=== PATIENT | male | born 1985 | race Caucasian/White ===

== ENCOUNTER 2016-12-08 12:27 | Emergency (ER) ==
[2016-12-08 12:33] VITALS: BP 122/73; TEMP 99.9; BMI 24.3
--- NOTE | 2016-12-08 12:42 | ED.PDOC ---
General ED Provider: Dr. ANURAG WILEY-ER Chief Complaint: Sore Throat Stated Complaint: jesusita got a sore throat and i have blurry vision and have trouble swallowing Time Seen by Physician: 12:30 Mode of Arrival: Walk-In Information Source: Patient Exam Limitations: No limitations Nursing and Triage Documentation Reviewed and Agree: Yes EENT Complaint Exam - Throat Complaint/Exam Onset/Duration: 24hrs Symptoms Are: Still present Timimg: Constant Initial Severity: Mild Current Severity: Moderate Aggravating: Reports: Eating Alleviating: Reports: None Associated Signs and Symptoms: Reports: Dysphagia, Difficulty breathing. Denies : Fever, Drooling, Foreign body sensation, Chills, Cough, Wheezing, Hoarseness, Sinus discomfort, Nasal congestion, Lethargy, Irritability, Decreased activity, Vomiting, Diarrhea, Decreased hearing, Ear drainage Uvula Midline: Yes Sandra-tonsillar Fluctuence: No Scarlatinaform Rash Present: No Exanthem: Present: Pharynx Stridor Present: No Sinus Tenderness Present: No Tonsillar Hypertrophy Present: No Tonsillar Exudate Present: No Sandra-tonsillar Swelling Present: No Adenopathy Present: No Splenomegaly Present: No Differential Diagnoses: Pharyngitis, Tonsillitis Review of Systems - Review Of Systems Constitutional: Reports: Weakness, Loss of appetite Eyes: Reports: No symptoms Ears, Nose, Mouth, Throat: Reports: Throat pain, Throat swelling Respiratory: Reports: Cough Cardiac: Reports: No symptoms GI: Reports: No symptoms : Reports: No symptoms Musculoskeletal: Reports: No symptoms Skin: Reports: No symptoms Neurological: Reports: No symptoms Endocrine: Reports: No symptoms Hematologic/Lymphatic: Reports: No symptoms All Other Systems: Reviewed and Negative Past Medical History - Past Medical History Previously Healthy: Yes Endocrine: Reports: None Cardiovascular: Reports: None Respiratory: Reports: None Hematological: Reports: None Gastrointestinal: Reports: None Genitourinary: Reports: None Neuro/Psych: Reports: None Musculoskeletal: Reports: Joint Pain (Carple tunnel ) Cancer: Reports: None - Surgical History General Surgical History: Reports: Unknown - Family History Family History: Reports: Unknown - Social History Smoking Status: Current some day smoker Hx Substance Use: No Alcohol Screening: None Physical Exam - Physical Exam Appearance: Well-appearing, No pain distress, Well-nourished Eyes: SCAR, EOMI, Conjunctiva clear ENT: Ears normal Neck: Supple Respiratory: Airway patent, Breath sounds clear, Breath sounds equal, Respirations nonlabored Cardiovascular: RRR, Pulses normal, No rub, No murmur GI/: Soft, Nontender, No masses, Bowel sounds normal, No Organomegaly Musculoskeletal: Normal strength, ROM intact, No edema, No calf tenderness Skin: Warm, Dry, Normal color Neurological: Sensation intact, Motor intact, Reflexes intact, Cranial nerves intact, Alert, Oriented Psychiatric: Affect appropriate, Mood appropriate Critical Care Note - Critical Care Note Total Time (mins): 0 Course - Course Orders, Labs, Meds: mr byrd asked me how long it would take for studies to come back and i told him as long as 2 hrs--he stated he didnt have time to wait due to work and decided not to be seen--i offered him work excuse but again he states he cant stay due to his work and decided to leave ama Vital Signs: Temp Pulse Resp BP Pulse Ox 12/08/16 12:28 99.9 F H 100 H 16 122/73 100 Departure - Departure Time of Disposition: 12:44 Disposition: AMA Discharge Problem: Sore throat symptom Instructions: Pharyngitis (ED) Condition: Good Pt referred to PMD for follow-up: No Additional Instructions: return if you decide you would like to be seen Allergies/Adverse Reactions: Allergies No Known Allergies Allergy (Verified 06/14/16 20:15) Home Medications: Ambulatory Orders 1 [No Reported Medications] 06/14/16 Disposition Discussed With: Patient
== END 2016-12-08 12:59 | disposition left against medical advice (07) ==
LOC: ED 12:27
DX: J02.9 Acute pharyngitis, unspecified (principal); F17.210 Nicotine dependence, cigarettes, uncomplicated
CPT/HCPCS: 99281

== ENCOUNTER 2016-12-08 13:38 | Inpatient (IN) ==
[2016-12-08 14:12] LABS: BASOPHILS % (AUTO) 0.4 % (0.0-3.0); EOSINOPHILS # (AUTO) 0.1 K/ul (0.0-0.7); EOSINOPHILS % (AUTO) 0.8 % (0.0-7.0); HEMATOCRIT 39.7 % (42.0-52.0); HEMOGLOBIN 15.4 g/dl (14.0-18.0); IMMATURE GRANULOCYTE % (AUTO) 0.3 % (0.0-5.0); LYMPHOCYTES % (AUTO) 10.1 (10.0-50.0); MEAN CORPUSCULAR HEMOGLOBIN 31.1 pg (27.0-31.0); MEAN CORPUSCULAR HGB CONC 38.8 (31.8-35.4); MEAN CORPUSCULAR VOLUME 80.2 fl (80.0-94.0); MONOCYTES # (AUTO) 0.5 K/uL (0.4-2.0); MONOCYTES % (AUTO) 5.1 (0-10); NEUTROPHILS # (AUTO) 8.6 K/ul (2.0-6.9); NEUTROPHILS % (AUTO) 83.3; PLATELET COUNT 248 10^3/uL (140-440); RED BLOOD COUNT 4.95 10^6/ul (4.70-6.10); WHITE BLOOD COUNT 10.32 K/ul (4.2-10.2)
--- NOTE | 2016-12-08 14:31 | CT ---
EXAM: CT of the head without contrast History: Blurred vision and dizziness. Technique: Multiplanar CT images through the head were obtained without the administration of IV co ntrast Findings: 1.7 cm mucous retention cyst or polyp within the left maxillary sinus. The rest of the v isualized paranasal sinuses and mastoid air cells are clear in general. No acute calvarial abnormali ties. Intracranially the ventricular and cisternal spaces are normal in size, shape and configuration for a patient of this age. No dominant mass or midline shift. No hydrocephalous. No acute intracrania l hemorrhage or abnormal extraaxial fluid collections. Impression: 1. No acute intracranial process. 2. Left maxillary sinus mucous retention cyst or polyp. 3. If symptoms persist recommend further evaluation with brain MRI.
[2016-12-08 14:48] LABS: ADD URINE MICROSCOPIC NO; BILIRUBIN,URINE Negative (NEGATIVE); KETONES,URINE 2+ (NEGATIVE); LEUKOCYTE ESTERASE ,URINE Negative (NEGATIVE); NITRITE,URINE Negative (NEGATIVE); PH,URINE 5.5 (5-9); PROTEIN,URINE Negative (NEGATIVE); URINE, BLOOD Negative (NEGATIVE)
[2016-12-08 14:54] LABS: ALANINE AMINOTRANSFERASE 53 U/L (12-78); ALBUMIN 4.1 g/dL (3.4-5.0); ALBUMIN/GLOBULIN RATIO 1.21; ALKALINE PHOSPHATASE 146 U/L (50-136); ANION GAP 18.5; ASPARTATE AMINO TRANSFERASE 50 U/L (15-37); BILIRUBIN,TOTAL 0.81 mg/dL (0.00-1.20); BLOOD UREA NITROGEN 13 mg/dL (7-18); BUN/CREATININE RATIO 9.02; CALCIUM 9.2 mg/dL (8.2-10.2); CARBON DIOXIDE 23 mmol/L (21-32); CHLORIDE 92 mmol/L (98-107); CREATININE 1.44 mg/dL (0.60-1.10); POTASSIUM 4.5 mmol/L (3.5-5.1); SODIUM 129 mmol/L (136-145); TOTAL PROTEIN 7.5 g/dL (6.4-8.2)
[2016-12-08 14:57] LABS: COCAIN SCREEN,URINE NEGATIVE (NEGATIVE)
[2016-12-08 14:59] LABS: CREATINE KINASE 946 U/L; GLUCOSE 776 mg/dL (70-100)
[2016-12-08] MEDS ORDERED: SODIUM CHLORIDE 1,000 ML IV STA (15:06)
[2016-12-08 15:18] LABS: ABG BASE EXCESS -2 (-2.0-2.0); ABG HCO3 22.3 (22.0-26.0); ABG PCO2 34.5 mmHg (35-45); ABG PH 7.418 (7.35-7.45); ABG TCO2 23 (22.0-28.0)
[2016-12-08 15:22] LABS: CREATINE KINASE MB 9.5 ng/ml (0.0-3.6)
--- NOTE | 2016-12-08 15:36 | ED.PDOC ---
General ED Provider: Dr. ANURAG WILEY-ER Chief Complaint: Sore Throat Stated Complaint: i have mild sore throat, dizzines, weight loss, visual changes Time Seen by Physician: 13:45 Mode of Arrival: Walk-In Information Source: Patient Exam Limitations: No limitations Nursing and Triage Documentation Reviewed and Agree: Yes Endocrine Complaint Exam - Diabetic Complication Complaint/Exam Onset/Duration: several days Symptoms Are: Still present Timing: Constant Initial Severity: Mild Current Severity: Mild Character: Alert, Lethargic Aggravating: Reports: Recent illness Alleviating: Reports: None Associated Signs and Symptoms: Reports: Polydipsia. Denies: Decreased LOC, Polyuria, Polyphagia, Weight loss, Abdominal pain, Nausea, Vomiting, Fever, Diaphoresis, Fruity breath Related History: Reports: Similar episode Cardiac Risk Factors: Reports: DM CVA Risk Factors: Reports: DM Serious Bacterial Infection Risk Factors: Reports: None Related Surgical History: Reports: None Acetone on Breath: No Dry Mucous Membranes: Yes Kussmaul Respirations: No Glascow Coma Scale (see protocol): 15 Meningeal Signs: No Focal Weakness: None Focal Sensory Loss: None Gait: Normal Nystagmus Present: No Gag Reflex Present: Yes Finger to Nose: Normal Romberg Test Positive: No Babinski Sign: Negative Right Heel to Toe Normal: Yes Differential Diagnoses: Hyperglycemia, New Onset Diabetes Review of Systems - Review Of Systems Constitutional: Reports: No symptoms Eyes: Reports: No symptoms Ears, Nose, Mouth, Throat: Reports: No symptoms Respiratory: Reports: No symptoms Cardiac: Reports: No symptoms GI: Reports: No symptoms : Reports: Frequency Musculoskeletal: Reports: No symptoms Skin: Reports: No symptoms Neurological: Reports: No symptoms Endocrine: Reports: No symptoms Hematologic/Lymphatic: Reports: No symptoms All Other Systems: Reviewed and Negative Past Medical History - Past Medical History Previously Healthy: Yes Endocrine: Reports: None Cardiovascular: Reports: None Respiratory: Reports: None Hematological: Reports: None Gastrointestinal: Reports: None Genitourinary: Reports: None Neuro/Psych: Reports: None Musculoskeletal: Reports: Joint Pain (Carple tunnel ) Cancer: Reports: None - Surgical History General Surgical History: Reports: Unknown - Family History Family History: Reports: Unknown - Social History Smoking Status: Current some day smoker Hx Substance Use: No Alcohol Screening: None Lives: With family - Immunizations Tetanus Shot up to Date: No Physical Exam - Physical Exam Appearance: Ill-appearing Ill-appearing: Mild Eyes: SCAR, EOMI, Conjunctiva clear ENT: Ears normal, Nose normal, Oropharynx normal Neck: Supple Respiratory: Airway patent, Breath sounds clear, Breath sounds equal, Respirations nonlabored Cardiovascular: RRR, Pulses normal, No rub, No murmur GI/: Soft, Nontender, No masses, Bowel sounds normal, No Organomegaly Musculoskeletal: Normal strength, ROM intact, No edema, No calf tenderness Skin: Warm, Dry, Normal color Neurological: Sensation intact, Motor intact, Reflexes intact, Cranial nerves intact, Alert, Oriented Psychiatric: Affect appropriate, Mood appropriate Interpretation - Radiology Interpretation Radiology Interpretation By: Radiologist Radiology Results: Negative Exam Interpreted: CT Scan Physician Notification - Case Discussed Physician Notified: dr steele Time of Notification: 15:36 Critical Care Note - Critical Care Note Total Time (mins): 15 Course - Course Hematology/Chemistry: 12/08/16 13:55 12/08/16 13:55 Orders, Labs, Meds: Lab Review 12/08/16 12/08/16 12/08/16 13:55 14:30 15:04 WBC 10.32 H RBC 4.95 Hgb 15.4 Hct 39.7 L MCV 80.2 MCH 31.1 H MCHC 38.8 H RDW Coeff of Nory 11.4 L Plt Count 248 Immature Gran % (Auto) 0.3 Neut % (Auto) 83.3 Lymph % (Auto) 10.1 Rankin % (Auto) 5.1 Eos % (Auto) 0.8 Baso % (Auto) 0.4 Immature Gran # (Auto) 0.0 Neut # 8.6 H Lymph # 1.0 Rankin # 0.5 Eos # 0.1 Baso # 0.0 Puncture Site R rad O2 Saturation 98.0 ABG pH 7.418 ABG pCO2 34.5 L ABG pO2 104.0 H ABG HCO3 22.3 ABG Total CO2 23 ABG Base Excess -2 Joel Test + FiO2 % 21.0 Sodium 129 L Potassium 4.5 Chloride 92 L Carbon Dioxide 23 Anion Gap 18.5 BUN 13 Creatinine 1.44 H Estimated GFR (MDRD) 57.00 BUN/Creatinine Ratio 9.02 Glucose 776 H* Hemoglobin A1c 14.6 H Calcium 9.2 Total Bilirubin 0.81 AST 50 H ALT 53 Alkaline Phosphatase 146 H Total Creatine Kinase 946 CK-MB (CK-2) 9.5 H* CK-MB (CK-2) % 1.51891 Troponin I < 0.0100 Total Protein 7.5 Albumin 4.1 Globulin 3.4 Albumin/Globulin Ratio 1.21 Urine Color Yellow Urine Clarity Clear Urine pH 5.5 Ur Specific [place] <=1.005 Urine Protein Negative Urine Glucose (UA) 2+ Urine Ketones 2+ Urine Blood Negative Urine Nitrite Negative Urine Bilirubin Negative Urine Urobilinogen 0.2 Ur Leukocyte Esterase Negative Urine Opiates Screen Negative Ur Oxycodone Screen Negative Urine Methadone Screen Negative Ur Propoxyphene Screen Negative Ur Barbiturates Screen Negative U Tricyclic Antidepress Negative Ur Phencyclidine Scrn Negative Ur Amphetamine Screen Negative U Methamphetamines Scrn Negative U Benzodiazepines Scrn Negative Urine Cocaine Screen Negative U Cannabinoids Screen Negative Orders Category Date Time Status ABG DRAW REQUEST Stat CARDIO 12/08/16 15:04 Completed EKG-(ED ONLY) Stat CARDIO 12/08/16 13:49 Completed ED IV/MEDIPORT/POWERPORT .ONCE EMERGENCY 12/08/16 15:06 Active ABG Stat LAB 12/08/16 15:04 Completed CBC W/ AUTO DIFF Stat LAB 12/08/16 13:55 Completed COMPREHENSIVE METABOLIC PANEL Stat LAB 12/08/16 13:55 Completed CREATINE KINASE Stat LAB 12/08/16 13:55 Completed DRUG SCREEN (RAPID FOR ED) [DRUG SCREEN, URINE, RAPID] LAB 12/08/16 14:30 Completed Stat HEMOGLOBIN A1C Stat LAB 12/08/16 13:55 Completed MOLECULAR GROUP A STREP Stat LAB 12/08/16 13:55 Results STREP SCREEN Stat LAB 12/08/16 13:55 Results TROPONIN I Stat LAB 12/08/16 13:55 Completed URINALYSIS C & S IF INDICATED Stat LAB 12/08/16 14:30 Completed 0.9 % Sodium Chloride [Saline Flush] MEDS 12/08/16 15:06 Active 1 syr IVF PRN PRN Sodium Chloride 0.9% [Sodium Chloride] 1,000 ml MEDS 12/08/16 15:[address] HEAD W/O CONTRAST Stat RADS 12/08/16 13:49 Completed Medications Generic Name Dose Route Start Last Admin Trade Name Freq PRN Reason Stop Dose Admin Sodium Chloride 1,000 mls @ 1,000 mls/hr 12/08/16 15:06 12/08/16 15:16 Sodium Chloride IV 12/08/16 16:05 1,000 mls/hr BOLUS STA Administration Sodium Chloride 1 syr 12/08/16 15:06 Saline Flush IVF PRN PRN To flush IV Vital Signs: Temp Pulse Resp BP Pulse Ox 12/08/16 13:40 98 F 61 16 121/71 97 Departure - Departure Time of Disposition: 15:37 Disposition: ADMITTED INPATIENT Discharge Problem: Type 2 diabetes mellitus with hyperglycemia Qualifiers: Diabetes mellitus mcfp insulin use: 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
[2016-12-08] MEDS ORDERED: HUMULIN R 100 UNIT in SODIUM CHLORIDE 100 ML IV SCH (15:45)
[2016-12-08] MEDS ORDERED: SODIUM CHLORIDE 1,000 ML IV SCH (16:00)
[2016-12-08 16:37] VITALS: BMI 24.6
[2016-12-08] MEDS ORDERED: HUMULIN R SUBCUT PRN (18:41)
[2016-12-08] MEDS ORDERED: D5%-NS-KCL 20 MEQ/L IV SOL 1,000 ML IV SCH (19:00)
[2016-12-08] MEDS: POTASSIUM CHLORIDE 10 MEQ VIAL-ADDITIVE ONLY 20 MEQ in SODIUM CHLORIDE 1,000 ML IV SCH ×2 (19:40→21:33)
[2016-12-08] MEDS ORDERED: HUMULIN R ONE ×4 (20:27→23:12)
[2016-12-08] MEDS: HUMULIN R SUBCUT PRN ×4 (20:30→23:15)
[2016-12-08] MEDS ORDERED: SODIUM CHLORIDE 0.9%-KCL 20 MEQ 1,000 ML IV SCH (21:00)
[2016-12-09] MEDS ORDERED: D5%-NS-KCL 20 MEQ/L IV SOL 1,000 ML IV SCH (01:30)
[2016-12-09 04:37] LABS: BASOPHILS % (AUTO) 0.2 % (0.0-3.0); EOSINOPHILS # (AUTO) 0.2 K/ul (0.0-0.7); EOSINOPHILS % (AUTO) 1.8 % (0.0-7.0); HEMATOCRIT 34.1 % (42.0-52.0); HEMOGLOBIN 12.7 g/dl (14.0-18.0); IMMATURE GRANULOCYTE % (AUTO) 0.4 % (0.0-5.0); LYMPHOCYTES # (AUTO) 2.1 K/uL (0.60-3.4); LYMPHOCYTES % (AUTO) 24.7 (10.0-50.0); MEAN CORPUSCULAR HEMOGLOBIN 30.5 pg (27.0-31.0); MEAN CORPUSCULAR HGB CONC 37.2 (31.8-35.4); MEAN CORPUSCULAR VOLUME 81.8 fl (80.0-94.0); MONOCYTES # (AUTO) 0.6 K/uL (0.4-2.0); MONOCYTES % (AUTO) 6.6 (0-10); NEUTROPHILS # (AUTO) 5.6 K/ul (2.0-6.9); NEUTROPHILS % (AUTO) 66.3; PLATELET COUNT 193 10^3/uL (140-440); RED BLOOD COUNT 4.17 10^6/ul (4.70-6.10); WHITE BLOOD COUNT 8.43 K/ul (4.2-10.2)
[2016-12-09 04:57] LABS: ALBUMIN 3.1 g/dL (3.4-5.0); ALBUMIN/GLOBULIN RATIO 1.29; ANION GAP 8.5; BILIRUBIN,TOTAL 0.45 mg/dL (0.00-1.20); BUN/CREATININE RATIO 11.53; CALCIUM 8.2 mg/dL (8.2-10.2); CREATININE 0.78 mg/dL (0.60-1.10); POTASSIUM 3.5 mmol/L (3.5-5.1); TOTAL PROTEIN 5.5 g/dL (6.4-8.2)
[2016-12-09] MEDS: HUMULIN R SUBCUT PRN ×3 (09:00→21:38)
--- NOTE | 2016-12-09 09:27 | HP ---
12/08/16 CHIEF COMPLAINT: Blurred vision, dizziness, urgency of urination and sore throat. SOURCE OF HISTORY: Patient, plus records from the emergency room. Reliability good. HISTORY OF PRESENT ILLNESS: The problem begun Tuesday while at work. He had blurred vision with dizziness. He also urgency of urination and urinates soon after drinking water or any liquids. 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 He had this urgency of urination, as well polydipsia for about a month or there about. He has the sensation to urinate that he pinches his penis in order to prevent from urinating on his pants. He had worked at [employer] now for more than a year. He works from 2 p.m. to 11 p.m. He also experienced sore throat on Tuesday and continued. The blurred vision had continued that he could not see words that were three time the size the usual type with an alphabet. The patient presented to the emergency room initially was examined about 12:30, but signed out since the blood test would last for more than two hours and has to go to work. He, however, came back about an hour and 15 minutes after the initial presentation, since he is not able to see things very well with persistent dizziness and sore throat. The work up revealed a marked hyperglycemia 776 of sugar. The A1C is 14.6. The CKMB is 9.5 , elevated with a maximum normal of 3.6. The patient, however, does not have any chest pain or any chest oppression or tightness. He also denies any shortness of breath. His Troponin is normal at less than 0.0100. The arterial blood gases with oxygen saturation 98, pH 7.418, PCO2 34.5, PO2 104, bicarbonate 22.3 normal total CO2 23, base excess -2, FIO2 21%. Dr. Cash had contacted me with regards to this patient for admission. The patient's problems are hyperosmolar and hyperglycemic state. PAST PERSONAL HISTORY: The patient had history of GERD, but not on any medication and had surgery on the left side of the neck, probably a thyroglossal cyst, although the patient is not able to describe it including his mother. FAMILY HISTORY: History of diabetes in the family, father, as well as mother. He has siblings that are diabetic. The diabetes on the maternal side involves not the mother, but the relatives of hers. SOCIAL HISTORY: The patient is single and resides with his mother and had moved from [place] to [place]. He is employed at [employer] and works from 2 p.m. to 11 p.m. MEDICATIONS: Prior to this admission are none. ALLERGIES: No known drug allergies. REVIEW OF SYSTEMS: CONSTITUTIONAL: The patient has no fever, no chills, but fatigued with some dizziness. PRIMER SUPERVISOR: The patient does complain of some dizziness, but not vertigo. He denies any headaches. No ataxia and no history of seizure disorders, nor any seizures. VISUAL: The patient has blurred vision. No double vision or transient loss of vision. AUDITORY: Hearing is good. No tinnitus, no pain and no drainage. RESPIRATORY: The patient has some cough, but not repetitive, nor productive. CARDIOVASCULAR: Denies any chest pain or chest oppression. GASTROINTESTINAL: The patient does have sore throat with pain on swallowing. No history of difficulty swallowing foods, solids or liquids prior to this sore throat. No diarrhea or constipation. This patient, however, had lost some weight. GENITOURINARY: The patient has urinary urgency, polyuria and polydipsia. He has to go to the bathroom soon after drinking liquids in the next five minutes or so. He has urgency and if he is not near the bathroom that he will be peeing in his pants. What he does to prevent that is squeezing his penis in order to prevent the urine from coming through. MUSCULOSKELETAL: No significant joint pains. ENDOCRINE: The patient has polyuria and polydipsia and blurred vision with a markedly elevated blood sugar. INTEGUMENT: Denies any rash or pruritus. HEMATOLOGIC: No history of prolonged bleeding or easy bruising. PSYCHIATRIC: Affect is normal. PHYSICAL EXAMINATION: GENERAL: We have a 31 year old male who works at [employer] who was admitted to the hospital because of sore throat, blurred vision, dizziness and weight loss. He also had polyuria and polydipsia with a markedly elevated sugar during the course of the work up in the emergency room. VITAL SIGNS: Temperature at presentation 98.1, pulse 61, blood pressure 121/71, respiratory rate 16, oxygen saturation 97. 5'8", 160 pounds. BMI 24.6. HEAD: Unremarkable. FACE: Symmetrical and equal with no facial weakness and no tenderness in the frontal or maxillary sinus areas to palpation under pressure. EYES: Pupils equal/reactive to light about 3 mm in size. Conjunctivae not pale. Sclerae not icteric. Fudus not examined at this time. MOUTH: Unremarkable. THROAT: No exudates. NECK: No adenopathies. No masses. No bruit. No tenderness. No rigidity. CHEST: Symmetrical and equal with good expansion. LUNGS: Breath sounds are heard in both sides. No rales or wheezing. HEART: Audible and regular with good tones. No murmurs. ABDOMEN: Flat, soft with no remarkable tenderness. No guarding. Bowel sounds are active. No masses palpable. EXTERNAL GENITALIA: Not performed. RECTAL: Not performed. LOWER EXTREMITIES: Symmetrical and equal with no edema. Tibial pulses both anterior and posterior tibials are present on both feet. UPPER EXTREMITIES: Symmetrical and equal. ASSESSMENT: 1. HYPEROSMOLAR, HYPERGLYCEMIC STATE 2. WEIGHT LOSS SECONDARY TO #1 3. CHRONIC TOBACCO USE AND ABUSE, VERY MINIMAL MTDD
[2016-12-09] MEDS ORDERED: SODIUM CHLORIDE 1,000 ML IV SCH (10:30)
[2016-12-09] MEDS: LANTUS SUBCUT SCH (21:38)
[2016-12-10 05:24] LABS: BASOPHILS % (AUTO) 0.3 % (0.0-3.0); EOSINOPHILS # (AUTO) 0.2 K/ul (0.0-0.7); EOSINOPHILS % (AUTO) 2.5 % (0.0-7.0); HEMATOCRIT 36.2 % (42.0-52.0); HEMOGLOBIN 13.1 g/dl (14.0-18.0); IMMATURE GRANULOCYTE % (AUTO) 0.3 % (0.0-5.0); LYMPHOCYTES # (AUTO) 2.6 K/uL (0.60-3.4); MEAN CORPUSCULAR HEMOGLOBIN 30.3 pg (27.0-31.0); MEAN CORPUSCULAR HGB CONC 36.2 (31.8-35.4); MEAN CORPUSCULAR VOLUME 83.8 fl (80.0-94.0); MONOCYTES # (AUTO) 0.4 K/uL (0.4-2.0); MONOCYTES % (AUTO) 6.3 (0-10); NEUTROPHILS # (AUTO) 3.5 K/ul (2.0-6.9); NEUTROPHILS % (AUTO) 52.6; PLATELET COUNT 190 10^3/uL (140-440); RED BLOOD COUNT 4.32 10^6/ul (4.70-6.10); WHITE BLOOD COUNT 6.71 K/ul (4.2-10.2)
[2016-12-10 05:38] LABS: ALBUMIN 3.1 g/dL (3.4-5.0); ALBUMIN/GLOBULIN RATIO 1.24; ANION GAP 10.5; BILIRUBIN,TOTAL 0.32 mg/dL (0.00-1.20); BUN/CREATININE RATIO 12.19; CALCIUM 8.4 mg/dL (8.2-10.2); CREATININE 0.82 mg/dL (0.60-1.10); POTASSIUM 3.5 mmol/L (3.5-5.1); TOTAL PROTEIN 5.6 g/dL (6.4-8.2)
[2016-12-10] MEDS: HUMULIN R SUBCUT PRN ×4 (06:01→21:35)
[2016-12-10] MEDS ORDERED: LOVENOX SUBCUT SCH (20:00)
[2016-12-10] MEDS: LANTUS SUBCUT SCH (20:17)
[2016-12-10] MEDS ORDERED: LOVENOX ONE (21:37)
[2016-12-11 05:28] LABS: BASOPHILS % (AUTO) 0.4 % (0.0-3.0); EOSINOPHILS # (AUTO) 0.2 K/ul (0.0-0.7); EOSINOPHILS % (AUTO) 2.1 % (0.0-7.0); HEMATOCRIT 40.6 % (42.0-52.0); HEMOGLOBIN 14.3 g/dl (14.0-18.0); IMMATURE GRANULOCYTE % (AUTO) 0.4 % (0.0-5.0); LYMPHOCYTES # (AUTO) 2.4 K/uL (0.60-3.4); LYMPHOCYTES % (AUTO) 33.1 (10.0-50.0); MEAN CORPUSCULAR HEMOGLOBIN 29.9 pg (27.0-31.0); MEAN CORPUSCULAR HGB CONC 35.2 (31.8-35.4); MEAN CORPUSCULAR VOLUME 84.9 fl (80.0-94.0); MONOCYTES # (AUTO) 0.4 K/uL (0.4-2.0); MONOCYTES % (AUTO) 5.7 (0-10); NEUTROPHILS # (AUTO) 4.2 K/ul (2.0-6.9); NEUTROPHILS % (AUTO) 58.3; PLATELET COUNT 199 10^3/uL (140-440); RED BLOOD COUNT 4.78 10^6/ul (4.70-6.10); WHITE BLOOD COUNT 7.15 K/ul (4.2-10.2)
[2016-12-11 06:19] LABS: ALBUMIN 3.2 g/dL (3.4-5.0); ALBUMIN/GLOBULIN RATIO 1.14; ANION GAP 11.8; BILIRUBIN,TOTAL 0.22 mg/dL (0.00-1.20); BUN/CREATININE RATIO 12.94; CALCIUM 8.6 mg/dL (8.2-10.2); CREATININE 0.85 mg/dL (0.60-1.10); POTASSIUM 3.8 mmol/L (3.5-5.1)
[2016-12-11] MEDS: HUMULIN R SUBCUT PRN ×3 (06:39→21:09)
[2016-12-11] MEDS: LANTUS SUBCUT SCH (21:08)
[2016-12-11] MEDS: LOVENOX SUBCUT SCH (21:12)
[2016-12-12] MEDS: HUMULIN R SUBCUT PRN ×5 (03:11→18:22)
[2016-12-12 05:22] LABS: BASOPHILS % (AUTO) 0.6 % (0.0-3.0); EOSINOPHILS # (AUTO) 0.2 K/ul (0.0-0.7); EOSINOPHILS % (AUTO) 2.9 % (0.0-7.0); HEMATOCRIT 37.2 % (42.0-52.0); HEMOGLOBIN 13.2 g/dl (14.0-18.0); IMMATURE GRANULOCYTE % (AUTO) 0.4 % (0.0-5.0); LYMPHOCYTES % (AUTO) 44.2 (10.0-50.0); MEAN CORPUSCULAR HEMOGLOBIN 30.5 pg (27.0-31.0); MEAN CORPUSCULAR HGB CONC 35.5 (31.8-35.4); MEAN CORPUSCULAR VOLUME 85.9 fl (80.0-94.0); MONOCYTES # (AUTO) 0.4 K/uL (0.4-2.0); MONOCYTES % (AUTO) 5.1 (0-10); NEUTROPHILS # (AUTO) 3.2 K/ul (2.0-6.9); NEUTROPHILS % (AUTO) 46.8; PLATELET COUNT 200 10^3/uL (140-440); RED BLOOD COUNT 4.33 10^6/ul (4.70-6.10); WHITE BLOOD COUNT 6.88 K/ul (4.2-10.2)
[2016-12-12 05:41] LABS: ALBUMIN/GLOBULIN RATIO 1.25; ANION GAP 8.8; BILIRUBIN,TOTAL 0.2 mg/dL (0.00-1.20); BUN/CREATININE RATIO 16.86; CALCIUM 8.4 mg/dL (8.2-10.2); CREATININE 0.83 mg/dL (0.60-1.10); POTASSIUM 3.8 mmol/L (3.5-5.1); TOTAL PROTEIN 5.4 g/dL (6.4-8.2)
[2016-12-12] MEDS ORDERED: MYLANTA SUSP PO PRN (12:26)
[2016-12-12] MEDS: LANTUS SUBCUT SCH (22:15)
[2016-12-12] MEDS: LOVENOX SUBCUT SCH (22:16)
[2016-12-13] MEDS: HUMULIN R SUBCUT PRN ×5 (02:29→21:30)
[2016-12-13 05:58] LABS: CHOL/HDL RATIO 2.6 (4.5-6.4)
[2016-12-13 05:59] LABS: CREATINE KINASE MB 1.4 ng/ml (0.0-3.6)
--- NOTE | 2016-12-13 13:09 | STRESSECHO ---
Date of Test: 12/13/16 Reason for Exam: DM-NEW DX, VSD, ASTHMA Ordering Physician: HOSPITALIST--BARRY ESCALANTE Current Medications: NO HOME MEDICATIONS Physical Findings: S1, S2, I/ SYSTOLIC EJECTION MURMUR Resting EKG: SINUS RHYTHM/NO ACUTE CHANGES Target Heart Rate: 160/189 STAGE MPH/GRADE HEART RATE BPM BLOOD PRESSURE mmhg RHYTHM S-T SEGMENT +/- UP DOWN SYMPTOMS,COMMENTS At Rest 60 140/64 SR X NONE 1 1.7/10% 88 184/52 SR X NONE 2 2.5/12% 90 176/60 SR X NONE 3 3.4/14% 100 184/61 SR X NONE 4 4.2/16% 5 5.0/18% Immediately after 116 SR X FATIGUE Durations of Exercise: 9:35 Maximum Heart Rate Reached: 116 Reason for Termination: FATIGUE 3 MIN POST EXERCISE: HR 62 BPM; BP 132/40 MMHG; SR, +/- INTERPRETATION: 99% OXYGEN SATURATION WITH EXERCISE ON ROOM AIR 1. TEST NEGATIVE FOR ISCHEMIC ST-T WAVE CHANGES (FROM HEART RATE 60/BPM TO 116/ BPM) 2. GOOD EXERCISE TOLERANCE 3. MILD SYSTOLIC HYPERTENSION WITH EXERCISE 4. NO CHEST PAIN OR DISCOMFORT 5. NO ARRHYTHMIAS NORMAL LEFT VENTRICULAR CONTRACTILITY--RESTING AND POST EXERCISE MTDD
--- NOTE | 2016-12-13 13:12 | ECHOSTRESS ---
Date of Exam: 12/13/16 Ordering Physician: HOSPITALIST--BARRY ESCALANTE Reason for Echo: HX VSD, STRESS TEST--NO ISCHEMIA M-Mode Normal Adult Results LV Dimensions Normal Adult Results AoV Opening excursions >1.6 LVEDD-base- 3.5-5.8 Ao root dimensions 2.0-3.7 LVESD-base- 3.1-4.6 L. Atrium dimensions 1.9-3.8 Post. Wall thickness 0.8-1.1 IV septum (thickness) 0.7-1.2 Post. Wall excursion 0.72-1.3 Septal motion Systolic motion R. Ventricular cavity 1.5-2.0 LVEF 60% Paradoxical septal wall motion 2-D: NORMAL LEFT VENTRICULAR CONTRACTILITY--RESTING AND POST EXERCISE M-MODE: MV: AV: TV: PV: CHAMBER SIZE: WALL MOTION: NORMAL LEFT VENTRICULAR CONTRACTILITY--RESTING AND POST EXERCISE PERICARDIUM: INTERPRETATION: 1. NORMAL LEFT VENTRICULAR CONTRACTILITY--RESTING AND POST EXERCISE MTDD
--- NOTE | 2016-12-13 13:45 | PN ---
DATE OF VISIT: 12/09/16 The patient today is alert and responsive and oriented. He has movement of all extremities. His eyes are still blurry, but better. VITAL SIGNS: At 5:27 p.m. showed a pulse rate of 49, blood pressure 119/58, respiratory rate 12. No oxygen saturation, but he had an oxygen saturation measured at 10 a.m. at 99. His temperature was 98. CHEST: The patient denied any chest pain. LUNGS: The lungs remained clear. HEART: Audible and regular with good tones. No murmurs. ABDOMEN: Soft with no tenderness. LOWER EXTREMITIES: No tenderness in the calf muscles. CONDITION: Improved and stable. MTDD
--- NOTE | 2016-12-13 14:17 | PN ---
DATE OF VISIT: 12/10/16 The patient today is alert and doing much better. The IV is discontinued, but he is continued on a Heparin lock. He is now on a sliding scale with an initial bolus. CHEST: He denies any chest pain or significant pain. EYES: His vision is improving. VITAL SIGNS: The patient remained afebrile and vital signs at 5:57 p.m. showed a temperature of 98.1, pulse 58, blood pressure 107/56, respiratory rate 18, oxygen saturation 99 at room air. LUNGS: Clear to auscultation. HEART: Normal sinus rhythm. ABDOMEN: Nontender. LOWER EXTREMITIES: No pain in both legs. LABS: CBC normal, except for mild anemia at 13.1 grams hemoglobin, 36.2 hematocrit. Renal panel normal. E GFR 110. Fasting blood sugar 174. AST is slightly lower than yesterday 40 from 47. He was 50 on admission. The ALT remained normal. Total protein and Albumin below normal. This patient is getting teaching with regards to the Insulin. He asked me whether he will be on Insulin on needle and I told him that I am not sure as I am still waiting for the blood tests that I had ordered. This patient also was very concerned about his job. I did tell him he should not worry since he is in the hospital for a very good reason. I also talked to him about him learning about his illness and disease and also trying to pay attention to his body's responses. I did tell him that if his sugar goes down that he may have some symptoms such as a warm sensation followed by sweating and then tremor or jittery. If his sugar goes down further without intervention that he might pass out. He told me that a nurse had told him about a liquid packet of sugar and that he should have it. I did inform him that a Coke bottle or Pepsi would be okay to carry all of the time, in fact he needs to carry it with him all of the time in the car or at work. He told that they are not allowed to have sodas or cans at work. I told him then that a package of liquid sugar would be a good alternative. The customer training specialist has to teach him about counting carbs. He would have to learn that very well in order for him to manage his diabetes. I also informed him that he needs to be very familiar with his glucometer. If he has any symptoms of weakness or feeling hot and sweaty, that he should test his blood sugar right there and then. BLAKE
--- NOTE | 2016-12-13 14:43 | PN ---
DATE OF VISIT: 12/11/16 The patient is alert, oriented times four and ambulatory. I did encourage him to walk in the hallways. He needs to burn some of his calories. 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 He needs to know those things very well. The patient seemed to be interested in learning how to deal with his problems. His CBC today is about the same as yesterday and the chemistries showed normal electrolytes. Normal renal panel. Fasting blood sugar of 185. AST is down close to normal. Total protein and Albumin about the same as yesterday, slightly better. This patient is eating 100% of his meals. As soon as he feels comfortable about what he is doing with his diabetes, this patient will be discharged. I need to talk to the mergers and acquisitions consultant again and give this patient a very good instructions with carb counting. CONDITION: Improved and stable. His diabetes is now in check, but not well controlled at this time. We are still in the process of trying to know how much he would need for his Insulin. Plasma C-peptide level is below normal and he most likely will be needing Insulin. I am waiting for the TRISTAN 65 autoantibody. I believe that he is a Type I Diabetes up to this point. I will try to find out if he had had a recent infection, respiratory or any other infections that may have triggered the episode of hyperglycemia. BLAKE
--- NOTE | 2016-12-13 15:06 | PN ---
DATE OF VISIT: 12/12/16 The patient today is alert, oriented times four. Not dyspneic, nor tachypneic and no complaints. He is trying to learn how to do things. He had asked me yesterday about an Insulin pump. I told him that it would be implanted by someone else. He asked me if his insurance would cover and I told him that I do not know what [place] Medicaid does. I know that they would pay for the Insulin, both kinds, but not the FlexPen. CBC today shows mild to moderate anemia. Fasting blood sugar is 176. Electrolytes normal. E GFR 108. Repeat CK was ordered. CBC and CMP series is discontinued. A fasting blood sugar and A1C was ordered for tomorrow. The patient most likely will be discharged by tomorrow after discussing further and making sure that he understood and he knows how to deal with his Insulin. It will probably be next week that he would resume working. The patient seemed to be motivated to have a good understanding and control of his disease. I told him that diabetes is an illness that the patient has to know well and would get only some guidance from the doctor. GENERAL APPEARANCE: The patient's general appearance is good. He is not dyspneic, nor tachypneic. CHEST: No pain in the chest or otherwise. LUNGS: Clear to auscultation in both sides. HEART: Audible and regular with good tones. No murmurs. ABDOMEN: Nontender. LOWER EXTREMITIES: No tenderness or pain in both lower extremities. CONDITION: Stable. MTDD
--- NOTE | 2016-12-13 15:38 | CONS ---
DATE OF CONSULTATION: 12/12/16 REASON FOR CONSULTATION/HISTORY OF PRESENT ILLNESS: The patient is a 31 year old white male was hospitalized because he came to the emergency room with sore throat, dizziness, weight loss and visual changes. The patient's blood sugar was 776 and he was in hyperosmolar status and also had some abnormality in his liver profile with +2 ketones in the body with 2+ Glucose and negative protein. The patient had as expected hyponatremia from severe hyperglycemia. His blood gasses showed pH 7.41 with pO2 104, pCO2 of 34 with HCO3 of 22, Base excesses of -2 that was practically not much evidence of having any metabolic acidosis or diabetic ketoacidosis. The patient was hospitalized and has been treated with insulin. His blood sugar this morning was 176. The patient has been in the hospital for 4-5 days. The patient given history of having ventricular septal defect type of abnormality. He was diagnosed at age 16 when he was in [place], [place] at 18 he was supposed to get it fixed but he didn't keep his appointment. The patient has been having sharp left sided chest pain in the center of the chest mainly going to the left side; sharp mostly in the epigastric area unrelated to exertion. The patient has had symptoms of dizziness, weight loss and visual changes for past several days, prior to that he never had this type of problems. REVIEW OF SYSTEMS: CONSTITUTIONAL: No night sweats. Weakness of fatigue. No fever or chills. HEENT: Eyes: Visual changes noted. No eye pain. No eye discharge. ENT: No runny nose. No epistaxis. No sinus pain. No sore throat. No odynophagia. No ear pain. No congestion. RESPIRATORY: Mild cough, no congestion. No hemoptysis. CARDIOVASCULAR: No angina symptoms. No CHF symptoms. No atypical chest pain for CAD. No palpitations. Shortness of breath on exertion mostly. Chest pain atypical left sided sharp unrelated to exertion. No PND. No Orthopnea. GASTROINTESTINAL: No abdominal pain. Mild nausea at time. No diarrhea or constipation. No hematemesis. No hematochezia. Appetite is more or less normal. GENITOURINARY: No urgency. No frequency. No dysuria. No hematuria. No obstructive symptoms. No discharge. No pain. No significant abnormal bleeding. MUSCULOSKELETAL: No musculoskeletal pain. No joint swelling. NEUROLOGICAL: No headache. No neck pain. No syncope. No seizures. Dizziness off and on but no blackouts. PSYCHIATRIC: Not anxious. No depression. No suicidal thoughts. No homicidal thoughts. SKIN: No rash. No lesions. No wounds. ENDOCRINE: Weight loss. No weight gain. HEMATOLOGIC/LYMPHATIC: No anemia. No purpura. No petechiae. No prolonged or excessive bleeding. No palpable lymph nodes. MEDICATIONS: None ALLERGIES: None SOCIAL/PERSONAL/FAMILY HISTORY: The patient has history of grandmother having diabetes, father had heart disease , brother has no diabetes. The patient drinks occasionally, smokes more then a pack of days and denies of any drug abuse. 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 He is single with no children and never . He just moved from [place] in September 2015. He has not seen any physician for past several years. PHYSICAL EXAMINATION: GENERAL: The patient is oriented to time, place and person. VITAL SIGNS: Temperature 97.2, pulse 50, respiratory rate 16, blood pressure 102 /55 and pulse ox 100%. HEENT: Head normocephalic, atraumatic. Eyes: Extraocular muscles are intact. Pupils are equal, round and reactive to light and accommodation. Ears: No lesions. Nose appeared normal. Throat: No exudate or erythema. NECK: Supple. No JVP, no carotid bruit. No lymphadenopathy or thyromegaly. LUNGS: Decreased breath sounds clear to auscultation. Percussion note normal. Chest symmetrical. HEART: S1, S2, no S3. Grade I/ systolic murmurs at the apex. Questionable clubbing. No ascites. Pulses: Dorsalis pedis and posterior tibial pulses +1 bilaterally. ABDOMEN: Soft. Nontender. Bowel sounds active. No CVA tenderness. No mass felt. EXTREMITIES: No edema. Full range of motion of all extremities, equal. NEUROLOGIC: No focal deficit. Cranial nerves II through XII are grossly intact. No headache, no double vision or headache. SKIN: Not dry. Intact. Turgor - normal. LYMPHATIC: No palpable lymph nodes/no lymphedema. MUSCULOSKELETAL: Normal joints with no swelling. Muscle tone is normal. LABS: Hgb 13.2, hct 37, WBC 6,800 normal differential, creatinine 0.8, BUN 14, potassium 3.8, glucose 176. EKG sinus rhythm, mild atrial enlargement, early repolarization, LVH, unspecific intraventricular conduction delay inferior OH type of pattern noted on November ASSESSMENT: 1. Diabetes Mellitus with hyperosmolar status with symptoms of polyuria and polydipsia, dizziness and visual change seems to be doing well. 2. Chronic lung disease with COPD 3. History of VST likely pulmonary hypertension RECOMMENDATIONS: 1. Will do echocardiogram to evaluation LV function and also to see right ventricular pressures. The patient may need complete echo with Doppler 2. Stress echo for evaluation of functional capacity 3. Oxygen saturation with exercise and also course evaluation of chest pain to rule out coronary insufficiency 4. T4 TSH if not done 5. Lipid profile if not done 6. Counseling for smoking done 7. Patient gives history of VST, if the patient is processes of developing pulmonary hypertension may not have much shunt left or equalizations of pressures in both ventricles may not be a loud murmur. The patient is going to be needing further evaluation. 8. Education carried out about diabetes and its complications, involvement of kidneys, eyes, blood vessels etc discussed in details. CONDITION: Stable, will follow Thank you very much for referral will follow. BLAKE
[2016-12-13] MEDS: LANTUS SUBCUT SCH (21:31)
[2016-12-13] MEDS: LOVENOX SUBCUT SCH (21:32)
[2016-12-14] MEDS: HUMULIN R SUBCUT PRN ×2 (06:28→10:44)
[2016-12-14 14:23] VITALS: BP 124/76; TEMP 97.9
--- NOTE | 2016-12-15 08:55 | ECHO2D ---
Date of Exam: 12/13/16 Ordering Physician: HOSPITALIST--BARRY ESCALANTE Reason for Echo: DM-NEW DIAGNOSIS, VSD? ASD? PFO?? M-Mode Normal Adult Results LV Dimensions Normal Adult Results AoV Opening excursions >1.6 >1.6 LVEDD-base- 3.5-5.8 4.1 Ao root dimensions 2.0-3.7 3.1 LVESD-base- 3.1-4.6 L. Atrium dimensions 1.9-3.8 3.6 Post. Wall thickness 0.8-1.1 1.2 IV septum (thickness) 0.7-1.2 1.2 Post. Wall excursion 0.72-1.3 NORMAL Septal motion NORMAL Systolic motion R. Ventricular cavity 1.5-2.0 NORMAL LVEF 60% 66% Paradoxical septal wall motion NORMAL 2-D : 2-D M Mode Echocardiogram was performed using apical four chamber and left parasternal long and short axis views. Tricuspid and aortic valves appear to be normal. Contractility of the left ventricle seems to be normal, so is the cavity size. Left atrial cavity size and aortic root appear to be normal. There is no pericardial effusion. There is no thrombus noted in the left ventricular or left aortic cavity. MITRAL VALVE PROLAPSE NOTED ON LEFT PARASTERNAL LONG AXIS AND APICAL FOUR CHAMBER VIEW M-MODE: MV: MITRAL VALVE PROLAPSE AV: NORMAL TV: NORMAL PV: CHAMBER SIZE: NORMAL WALL MOTION: NORMAL PERICARDIUM: NORMAL INTERPRETATION: 1. LEFT VENTRICULAR HYPERTROPHY 2. MITRAL VALVE PROLAPSE LATE SYSTOLIC 3. NORMAL LEFT CONTRACTILITY 4. NORMAL LEFT ATRIAL SIZE/ LEFT VENTRICLE SIZE MTDD
--- NOTE | 2016-12-15 14:26 | CONS ---
DATE OF SERVICE: 12/14/16 CONSULT FOLLOWUP SUBJECTIVE: The patient is a 31 year old white male hospitalized with hyperosmolar hyperglycemic status. The patient had some atypical chest pain and history of probably hole in the heart. The patient's condition it stable and he is feeling a lot better, he wants to go home and get started with his work. REVIEW OF SYSTEMS: CONSTITUTIONAL: No night sweats. No fatigue, malaise, lethargy. No fever or chills. HEENT: Eyes: No visual changes. No eye pain. No eye discharge. ENT: No runny nose. No epistaxis. No sinus pain. No sore throat. No odynophagia. No ear pain. No congestion. RESPIRATORY: No cough, no congestion. No hemoptysis. CARDIOVASCULAR: No angina symptoms. No CHF symptoms. No atypical chest pain for CAD. No palpitations. No shortness of breath. GASTROINTESTINAL: No abdominal pain. No nausea or vomiting. No diarrhea or constipation. No hematemesis. No hematochezia. GENITOURINARY: No urgency. No frequency. No dysuria. No hematuria. No obstructive symptoms. No discharge. No pain. No significant abnormal bleeding. MUSCULOSKELETAL: No musculoskeletal pain. No joint swelling. No arthritis. NEUROLOGICAL: No headache. No neck pain. No syncope. No seizures. No dizziness. PSYCHIATRIC: Not anxious. No depression. No suicidal thoughts. No homicidal thoughts. SKIN: No rash. No lesions. No wounds. ENDOCRINE: No unexplained weight loss. No weight gain. HEMATOLOGIC/LYMPHATIC: No anemia. No purpura. No petechiae. No prolonged or excessive bleeding. No palpable lymph nodes. PHYSICAL EXAMINATION: GENERAL: The patient is oriented to time, place and person. VITAL SIGNS: Temperature 97.8, pulse 60, respiratory rate 18, blood pressure 100 /54 and pulse ox 98%. HEENT: Head normocephalic, atraumatic. Eyes: Extraocular muscles are intact. Pupils are equal, round and reactive to light and accommodation. Ears: No lesions. Nose appeared normal. Throat: No exudate or erythema. NECK: Supple. No JVD, no carotid bruit. No lymphadenopathy or thyromegaly. LUNGS: Decreased breath sounds but clear to auscultation. Percussion note normal. Chest symmetrical. HEART: S1, S2, no S3. No murmurs. No cyanosis or clubbing. No ascites. Pulses: Dorsalis pedis and posterior tibial pulses +1 to +2 both sides. ABDOMEN: Soft. Nontender. Bowel sounds active. No CVA tenderness. No mass felt. EXTREMITIES: No edema. Full range of motion of all extremities, equal. NEUROLOGIC: No focal deficit. Cranial nerves II through XII are grossly intact. No headache, no double vision or headache. SKIN: Not dry. Intact. Turgor - normal. LYMPHATIC: No palpable lymph nodes/no lymphedema. MUSCULOSKELETAL: Normal joints with no swelling. Muscle tone is normal. LABS: Telemetry not arrhythmias of any significance. Stress echo was negative at high exercise level. Echo showed borderline LVH otherwise normal. ASSESSMENT: 1. Chest pain, non cardiac 2. Diabetes mellitus, type 1 RECOMMENDATIONS: 1. The patient was thoroughly explained about diabetes and it's complications and advised to eat his meals on a regular basis. The diabetic management is being done by primary physician. 2. The patient's cardiovascular status is stable. 3. The patient is to undergo color flow. Color flow with complete echo in next couple of days. The patient was strongly advised to keep his appointment incase if he is discharged. 4. Advised to has transesophageal echocardiogram done in near future to which he has agreed would be very likely scheduled by the primary physician. I don't think that patient has any significant right to left shunt because there is no question of left to right shunt. The patient doesn't have any evidence of pulmonary hypertension and there is no paradoxical septal wall motion. RV size is normal and LV size is normal. Left atrium is normal. Very likely the patient had probably small atrial septal defect or patent foramen ovale. Thanks for referral. Will sign out of the case. BLAKE
--- NOTE | 2016-12-15 14:28 | CONS ---
The patient was seen on consult on 12/12/16: Level 5 12/13/16: Intermediate 12/14/16: Intermediate MTDD
--- NOTE | 2016-12-16 13:08 | CONS ---
DATE OF SERVICE: 12/13/16 CONSULT FOLLOWUP SUBJECTIVE: The patient is a 31 year old white male was seen in consult to evaluate his cardiac status. The patient has been on hyperosmolar status which has been treated with insulin and seems to be under control. The patient gave history of having hole in the heart somehow was conveyed to me that patient had VST but on further questioning the patient doesn't know exactly what kind of hole he had. He said that he was told to have pin size hole what looks like thyroesophageal echocardiogram. The patient was advised to get it fix by age 18 but he never went for followup. REVIEW OF SYSTEMS: CONSTITUTIONAL: No night sweats. No fatigue, malaise, lethargy. No fever or chills. HEENT: Eyes: No visual changes. No eye pain. No eye discharge. Vision has been better. ENT: No runny nose. No epistaxis. No sinus pain. No sore throat. No odynophagia. No ear pain. No congestion. RESPIRATORY: No cough, no congestion. No hemoptysis. CARDIOVASCULAR: No angina symptoms. No CHF symptoms. No atypical chest pain for CAD. No palpitations. No shortness of breath. Symptoms of polyuria and polydipsia has subsided. GASTROINTESTINAL: No abdominal pain. No nausea or vomiting. No diarrhea or constipation. No hematemesis. No hematochezia. GENITOURINARY: No urgency. No frequency. No dysuria. No hematuria. No obstructive symptoms. No discharge. No pain. No significant abnormal bleeding. MUSCULOSKELETAL: No musculoskeletal pain. No joint swelling. No arthritis. NEUROLOGICAL: No headache. No neck pain. No syncope. No seizures. No dizziness. PSYCHIATRIC: Not anxious. No depression. No suicidal thoughts. No homicidal thoughts. SKIN: No rash. No lesions. No wounds. ENDOCRINE: No unexplained weight loss. No weight gain. HEMATOLOGIC/LYMPHATIC: No anemia. No purpura. No petechiae. No prolonged or excessive bleeding. No palpable lymph nodes. PHYSICAL EXAMINATION: GENERAL: The patient is oriented to time, place and person. VITAL SIGNS: Temperature 98.1, pulse 60, respiratory 20, blood pressure 125/85 and pulse ox 99%. HEENT: Head normocephalic, atraumatic. Eyes: Extraocular muscles are intact. Pupils are equal, round and reactive to light and accommodation. Ears: No lesions. Nose appeared normal. Throat: No exudate or erythema. NECK: Supple. No JVP, no carotid bruit. No lymphadenopathy or thyromegaly. LUNGS: Decreased breath sounds but clear to auscultation. Percussion note normal. Chest symmetrical. HEART: S1, S2, no S3. No murmurs. No cyanosis or clubbing. No ascites. Pulses: Dorsalis pedis and posterior tibial pulses +1 to +2 both sides. ABDOMEN: Soft. Nontender. Bowel sounds active. No CVA tenderness. No mass felt. EXTREMITIES: No edema. Full range of motion of all extremities, equal. NEUROLOGIC: No focal deficit. Cranial nerves II through XII are grossly intact. No headache, no double vision or headache. SKIN: Not dry. Intact. Turgor - normal. LYMPHATIC: No palpable lymph nodes/no lymphedema. MUSCULOSKELETAL: Normal joints with no swelling. Muscle tone is normal. LABS: EKG sinus rhythm, no acute changes. Early repolarization. This patient the patient had echocardiogram done which showed normal LV contractility with LVH with mitral valve prolapse. I did not see any evidence of shunt through the color flow. Septal motion is normal. There is no paradoxical septal wall motion , RV is normal, LV size is normal. Left antrum is normal size. The patient's stress echo was negative for any ischemia with high exercise tolerance. The patient reached METS of 12. ASSESSMENT: 1. LVH with hypertension blood pressure response to exercise 2. Mitral valve prolapse 3. History of hole in the hear could be small VST or PFO that patent foramen ovale RECOMMENDATIONS: 1. The patient's chest pain that he described yesterday is noncardiac. He has good exercise tolerance The patient does not have any evidence of pulmonary hypertension. His RV size is normal and LA size is normal. LV contractility is normal and paradoxical septal wall motion. The patient doesn't have any evidence of shunt left to right or right to left practically no clubbing. Oxygen saturation was 99% with exercise. The patient has PFO or atrial septal defect which seems to be insignificant. 2. Recommend Transesophageal echocardiogram 3. Complete echocardiogram transthoracic with Doppler and color flow 4. The later has already been schedule to be done this week at [facility]. 5. The patient's cardiovascular status is stable. The patient's cardiovascular status and the entire case was discussed with the attending. CONDITION: Stable. MTDD
--- NOTE | 2017-01-06 15:24 | AMA ---
DATE OF VISIT: 12/14/16 The patient told the nurse that he is walking out of the hospital at 5 p.m. if I am not in place. I was still at the office and doing notes. I came to the hospital to make sure that the patient doesn't leave the hospital. It is tragic if he would do that since he is a Type I Diabetic. He needed a prescription. I also wanted to know whether he knows what he is doing. The nurses had been trying to monitor him. Adrienne Ly told me that he had been obtaining Accucheck and giving himself the Humulin per sliding scale. I told the patient that I did not want him to leave the hospital and that is why I came , in spite of the fact that I am not done at the office since it is a very serious problem to have a Type I diabetic and not having any Insulin. I did tell him that if he would not have any Insulin for a month, that he most likely would unless he comes to the hospital because he is sick and will again receive Insulin. I told him that this is a very serious illness and that he needs to learn himself how to give the amount of medication. I also advised him about the symptoms of hypoglycemia, such as warm sensation, sweating and then being jittery. If that happens, that he should drink a sugar drink at that time. He should never use hard candy, since there is a possibility of choking if he would pass out. I also told him that he needed to have a mobile alert system just in case he would have some reaction. I would follow him for now, since it is critical that this patient will be followed and that I had some knowledge about him. I told him to record the sugar that he obtains before breakfast and before lunch and before supper and also the amount of Insulin that he gives himself. He should give himself Insulin about 11 o'clock or beyond since that is his check out time from work. He should have a sugar drink at work just in case he would have some symptoms of hypoglycemia. He had been instructed by the emblem drawer in about the diet. The emblem drawer in did tell me that he seemed to understand better on the second time that she had explained the diet. The patient is alert and has some comprehension problems, slower. He told me in front of Adrienne Ly that he needed simplified instructions with regards to the amount of Insulin. He is not very good in mathematics like blood sugar minus 100 divided by 20 is the amount of Insulin that he has to give before breakfast, before lunch and before supper. This patient is then given a numeric range and the amount of Insulin that he should give himself. He should avoid plain sugars and carbohydrates that are very sweet, such as cakes and candies. He is alert and oriented and cooperative. NECK: No masses, no bruit. LUNGS: Breath sounds are heard in both sides. No rales or wheezing. HEART: Audible and regular with good tones. ABDOMEN: Nontender. The patient's TRISTAN autoantibody is greater than 250 with the range of normal 0 to 5. Plasma Peptid was 0.2. Insulin level was 15, since the patient has Insulin on board. His A1C on 12/13/2016 was 14.4 and was 14.6 on admission. The patient's CK is down to normal and MB is 1.4. The patient was seen by Dr. Garza, [employer], because of history of septal defect. He did not find any septal defect on echocardiogram. The patient is scheduled to have a Color Flow Echocardiogram for further determination. Head CT on admission was unremarkable. Stress test negative for any ischemic ST-T wave changes. Good exercise tolerance. No obvious systolic hypertension during exercise. No chest pain. No discomfort. Normal left ventricular contractility resting and exercise. Echocardiogram showed normal left ventricular contractility, resting and exercise. The patient is discharged today with specific instructions and should call the office tomorrow to make an appointment with me. This patient was instructed to record his sugar readings and the amount of Insulin, so that I could look at it as to whether this patient has understood the instructions. It is very necessary that he does. He may be discharged Tuesday to return to work without limitation. I asked him to walk around and do some lifting and see how it works. 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 BLAKE
== END 2016-12-14 18:30 | disposition home or self-care (01) | DRG 638 ==
LOC: ED 13:38 → SCU 15:55 → MEDSURG B 12-10 01:38
PROVIDERS: ADMIT General Practice; ATTEND General Practice
DX: E10.9 Type 1 diabetes mellitus without complications (principal); Q21.0 Ventricular septal defect; J02.9 Acute pharyngitis, unspecified; I34.1 Nonrheumatic mitral (valve) prolapse; I51.7 Cardiomegaly; H53.8 Other visual disturbances; J44.9 Chronic obstructive pulmonary disease, unspecified; D64.9 Anemia, unspecified; R07.89 Other chest pain; F17.210 Nicotine dependence, cigarettes, uncomplicated; Z83.3 Family history of diabetes mellitus
CPT/HCPCS: 36415; 80053; 80061; 80306; 81001; 82550; 82553; 82803; 82962; 83036; 83519; 83525; 84145; 84439; 84443; 84484; 84681; 85025; 87651; 87880; 93005; 93010; 96360; 96361; 96366; 97802; 97803; 99281; 99284

== ENCOUNTER 2016-12-16 15:39 | Outpatient (CLI) ==
[2016-12-16 17:31] LABS: FERRITIN 351.4 ng/mL (21.81-274.66)
== END 2016-12-16 15:40 | disposition home or self-care (01) ==
LOC: LAB 15:39
PROVIDERS: ATTEND Nurse Practitioner Family
DX: D64.9 Anemia, unspecified (principal); E78.5 Hyperlipidemia, unspecified
CPT/HCPCS: 36415; 82607; 82728; 83540; 83550; 84466

== ENCOUNTER 2016-12-21 11:30 | Emergency (ER) ==
[2016-12-21 11:38] VITALS: BP 138/89; TEMP 97.7; BMI 18.2
[2016-12-21] MEDS ORDERED: HUMULIN R IVP STA ×2 (11:44→11:56)
[2016-12-21] MEDS ORDERED: K-DUR PO STA (11:56)
[2016-12-21] MEDS ORDERED: SODIUM CHLORIDE 1,000 ML IV STA (11:59)
[2016-12-21 12:04] LABS: BASOPHILS % (AUTO) 0.5 % (0.0-3.0); EOSINOPHILS # (AUTO) 0.1 K/ul (0.0-0.7); EOSINOPHILS % (AUTO) 0.8 % (0.0-7.0); HEMATOCRIT 40.3 % (42.0-52.0); HEMOGLOBIN 14.1 g/dl (14.0-18.0); IMMATURE GRANULOCYTE % (AUTO) 0.5 % (0.0-5.0); LYMPHOCYTES # (AUTO) 1.4 K/uL (0.60-3.4); LYMPHOCYTES % (AUTO) 21.2 (10.0-50.0); MEAN CORPUSCULAR HEMOGLOBIN 29.9 pg (27.0-31.0); MEAN CORPUSCULAR VOLUME 85.4 fl (80.0-94.0); MONOCYTES # (AUTO) 0.4 K/uL (0.4-2.0); MONOCYTES % (AUTO) 6.3 (0-10); NEUTROPHILS # (AUTO) 4.6 K/ul (2.0-6.9); NEUTROPHILS % (AUTO) 70.7; PLATELET COUNT 277 10^3/uL (140-440); RED BLOOD COUNT 4.72 10^6/ul (4.70-6.10); WHITE BLOOD COUNT 6.47 K/ul (4.2-10.2)
[2016-12-21 12:06] LABS: ABG PCO2 42.9 mmHg (35-45); ABG PH 7.425 (7.35-7.45)
[2016-12-21 12:07] LABS: ABG BASE EXCESS 4 (-2.0-2.0); ABG HCO3 28.1 (22.0-26.0); ABG TCO2 29 (22.0-28.0)
--- NOTE | 2016-12-21 12:35 | ED.PDOC ---
General ED Provider: Dr. 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 SUPPOSED TO SEE Matt AT 1:30 THIS AFTERNOON BUT WAS TOLD TO COME TO THE EMERGENCY ROOM....WAS TOLD HE WAS A DIABETIC ON 12/08/16. [ End ]97.7 75 20 97% 138/89 Time Seen by Physician: 12:29 Mode of Arrival: Walk-In Information Source: Patient Exam Limitations: No limitations, Other Primary Care Provider[facility] and T[facility] Documentation Reviewed and Agree: No Review of Systems - Review Of Systems Constitutional: Reports: No symptoms Eyes: Reports: No symptoms Ears, Nose, Mouth, Throat: Reports: No symptoms Respiratory: Reports: No symptoms Cardiac: Reports: No symptoms GI: Reports: No symptoms : Reports: No symptoms. Denies: Frequency, Flank pain, Hematuria Musculoskeletal: Reports: No symptoms Skin: Reports: No symptoms Neurological: Reports: No symptoms Endocrine: Reports: No symptoms Hematologic/Lymphatic: Reports: No symptoms All Other Systems: Reviewed and Negative Past Medical History - Past Medical History Previously Healthy: Yes Endocrine: Reports: None Cardiovascular: Reports: None Respiratory: Reports: None Hematological: Reports: None Gastrointestinal: Reports: None Genitourinary: Reports: None Neuro/Psych: Reports: None Musculoskeletal: Reports: Joint Pain (Carple tunnel ) Cancer: Reports: None - Surgical History General Surgical History: Reports: Unknown - Family History Family History: Reports: Unknown - Social History Smoking Status: Current some day smoker Hx Substance Use: No Alcohol Screening: None - Immunizations Tetanus Shot up to Date: Yes Physical Exam - Physical Exam Appearance: Well-appearing, Cachectic Ill-appearing: Mild Pain Distress: Mild Eyes: SCAR, EOMI, Conjunctiva clear ENT: Ears normal, Nose normal, Oropharynx normal Neck: Supple Respiratory: Airway patent, Breath sounds clear, Breath sounds equal, Respirations nonlabored Cardiovascular: RRR, Pulses normal, No rub, No murmur GI/: Soft, Nontender, No masses, Bowel sounds normal, No Organomegaly Musculoskeletal: Normal strength, ROM intact, No edema, No calf tenderness Skin: Warm, Dry, Normal color Neurological: Sensation intact, Motor intact, Reflexes intact, Cranial nerves intact, Alert, Oriented Psychiatric: Affect appropriate, Mood appropriate Interpretation - EKG Interpretation Time of EKG #1: 11:55 Rate: Normal Rhythm: Sinus Ectopy: None [place]: NL ST Segment: Normal Critical Care Note - Critical Care Note Total Time (mins): 5 Course - Course Hematology/Chemistry: 12/21/16 11:50 12/21/16 11:50 Orders, Labs, Meds: Lab Review 12/21/16 12/21/16 11:50 13:05 WBC 6.47 RBC 4.72 Hgb 14.1 Hct 40.3 L MCV 85.4 MCH 29.9 MCHC 35.0 RDW Coeff of Nory 11.5 L Plt Count 277 Immature Gran % (Auto) 0.5 Neut % (Auto) 70.7 Lymph % (Auto) 21.2 [place] % (Auto) 6.3 Eos % (Auto) 0.8 Baso % (Auto) 0.5 Immature Gran # (Auto) 0.0 Neut # 4.6 Lymph # 1.4 [place] # 0.4 Eos # 0.1 Baso # 0.0 Puncture Site R rad O2 Saturation 98.0 ABG pH 7.425 ABG pCO2 42.9 ABG pO2 96.0 ABG HCO3 28.1 H ABG Total CO2 29 H ABG Base Excess 4 H Joel Test + FiO2 % 21.0 Sodium 132 L Potassium 4.5 Chloride 95 L Carbon Dioxide 26 Anion Gap 15.5 BUN 12 Creatinine 1.10 Estimated GFR (MDRD) 78.00 BUN/Creatinine Ratio 10.90 Glucose 454 H Lactic Acid 6.8 Calcium 9.8 Total Bilirubin 0.49 AST 43 H ALT 85 H Alkaline Phosphatase 133 Total Creatine Kinase 158 CK-MB (CK-2) 1.9 CK-MB (CK-2) % 1.46945 Troponin I < 0.0100 B-Natriuretic Peptide 67 Total Protein 7.8 Albumin 4.4 Globulin 3.4 Albumin/Globulin Ratio 1.29 Procalcitonin < 0.05 Urine Color Yellow Urine Clarity Clear Urine pH 7.0 Ur Specific [place] 1.015 Urine Protein Negative Urine Glucose (UA) 2+ Urine Ketones Negative Urine Blood Negative Urine Nitrite Negative Urine Bilirubin Negative Urine Urobilinogen 0.2 Ur Leukocyte Esterase Negative Acetone, Qual None Orders Category Date Time Status ABG DRAW REQUEST Stat CARDIO 12/21/16 11:43 Completed EKG-(ED ONLY) Stat CARDIO 12/21/16 11:42 Completed ACCUCHECK (ED) [ED ACCUCHECK ASSESSMENT] .ONCE EMERGENCY 12/21/16 13:05 Active ED IV/MEDIPORT/POWERPORT .ONCE EMERGENCY 12/21/16 11:42 Active ABG Stat LAB 12/21/16 11:50 Completed ACETONE, QUALITATIVE Stat LAB 12/21/16 11:50 Completed B-TYPE NATRIURETIC PEPTIDE Stat LAB 12/21/16 11:50 Completed BLOOD CULTURE Stat LAB 12/21/16 11:50 Received CBC W/ AUTO DIFF Stat LAB 12/21/16 11:50 Completed COMPREHENSIVE METABOLIC PANEL Stat LAB 12/21/16 11:50 Completed CREATINE KINASE Stat LAB 12/21/16 11:50 Completed LACTIC ACID Stat LAB 12/21/16 11:50 Completed PROCALCITONIN Stat LAB 12/21/16 11:50 Completed TROPONIN I Stat LAB 12/21/16 11:50 Completed UA [URINALYSIS C & S IF INDICATED] Stat LAB 12/21/16 13:05 Completed 0.9 % Sodium Chloride [Saline Flush] MEDS 12/21/16 11:42 Discontinued 1 syr IVF PRN PRN Insulin Regular, Human [Humulin R] MEDS 12/21/16 11:56 Discontinued 15 unit IVP ONCE STA Insulin Regular, Human [Humulin R] MEDS 12/21/16 11:44 Discontinued See Protocol IVP ONCE STA Metformin HCl [Glucophage] MEDS 12/21/16 17:30 Discontinued 500 mg PO BIDWM Potassium Chloride [K-Dur] MEDS 12/21/16 11:56 Discontinued 40 meq PO ONCE STA Sodium Chloride 0.9% [Sodium Chloride] 1,000 ml MEDS 12/21/16 11:59 Discontinued IV BOLUS Medications Discontinued Medications Generic Name Dose Route Start Last Admin Trade Name Freq PRN Reason Stop Dose Admin Sodium Chloride 1,000 mls @ 1,000 mls/hr 12/21/16 11:59 12/21/16 12:15 Sodium Chloride IV 12/21/16 12:58 1,000 mls/hr BOLUS STA Administration Insulin Human Regular 0 unit 12/21/16 11:44 Humulin R IVP 12/21/16 11:45 ONCE STA Protocol Insulin Human Regular 15 unit 12/21/16 11:56 12/21/16 12:16 Humulin R IVP 12/21/16 11:57 15 unit ONCE STA Administration Metformin HCl 500 mg 12/21/16 17:30 Glucophage PO BIDWM SAVANAH Potassium Chloride 40 meq 12/21/16 11:56 12/21/16 12:17 K-Dur PO 12/21/16 11:57 40 meq ONCE STA Administration Sodium Chloride 1 syr 12/21/16 11:42 12/21/16 12:15 Saline Flush IVF 1 syr PRN PRN Administration To flush IV Vital Signs: Temp Pulse Resp BP Pulse Ox 12/21/16 11:31 97.7 F 75 20 138/89 97 Departure - Departure Time of Disposition: 13:52 Disposition: HOME SELF-CARE Discharge Problem: Uncontrolled diabetes mellitus Instructions: Type 1 Diabetes in Adults (ED) Condition: Good Pt referred to PMD for follow-up: Yes Additional Instructions: FOR BLOOD SUGAR OVER 200 USE REGULAR INSULIN WITH SLIDING SCALE TAKE LANTUS IN EVENING PRESCRIBED IF NEEDING MORE INSULIN DURING THE DAY MAY NEED TO INCREASE EVENING LANTUS, BUT CHECK WITH THE CLINIC BEFORE INCREASING. TAKE METFORMIN PILLS TWICE A DAY one twice a day, may need to increase dose- discuss with PMD in one or two weeks prescription for two twice a day- wait to see if more than two are needed CHECK SUGAR BEFORE MEALS AND IF CONCERNED ABOUT SUGAR DO NOT NEED TO CHECK SUGAR AFTER MEALS Prescriptions: Blood Sugar Diagnostic [Glucose Test Strip] 1 each MC Q3-4H PRN #200 strip PRN Reason: Hyperglycemica Metformin HCl [Glucophage] 1,000 mg PO BID #120 tablet Allergies/Adverse Reactions: Allergies No Known Allergies Allergy (Verified 12/21/16 11:40) Home Medications: Ambulatory Orders Insulin Glargine,Hum.rec.anlog [Lantus] 100 unit SQ BEDTIME vial 12/16/16 Insulin Regular, Human [Humulin R] 100 unit IJ DIRECTED PRN vial 12/16/16 Blood Sugar Diagnostic [Glucose Test Strip] 1 each MC Q3-4H PRN #200 strip 12/21 Metformin HCl [Glucophage] 1,000 mg PO BID #120 tablet 12/21/16
[2016-12-21 12:41] LABS: ALANINE AMINOTRANSFERASE 85 U/L (12-78); ALBUMIN 4.4 g/dL (3.4-5.0); ALBUMIN/GLOBULIN RATIO 1.29; ALKALINE PHOSPHATASE 133 U/L (50-136); ANION GAP 15.5; ASPARTATE AMINO TRANSFERASE 43 U/L (15-37); BILIRUBIN,TOTAL 0.49 mg/dL (0.00-1.20); BLOOD UREA NITROGEN 12 mg/dL (7-18); CALCIUM 9.8 mg/dL (8.2-10.2); CARBON DIOXIDE 26 mmol/L (21-32); CHLORIDE 95 mmol/L (98-107); CREATINE KINASE 158 U/L; GLUCOSE 454 mg/dL (70-100); POTASSIUM 4.5 mmol/L (3.5-5.1); SODIUM 132 mmol/L (136-145); TOTAL PROTEIN 7.8 g/dL (6.4-8.2)
[2016-12-21 12:44] LABS: CREATINE KINASE MB 1.9 ng/ml (0.0-3.6)
[2016-12-21 13:29] LABS: BILIRUBIN,URINE Negative (NEGATIVE); KETONES,URINE Negative (NEGATIVE); LEUKOCYTE ESTERASE ,URINE Negative (NEGATIVE); NITRITE,URINE Negative (NEGATIVE); PROTEIN,URINE Negative (NEGATIVE); URINE, BLOOD Negative (NEGATIVE)
[2016-12-21 13:34] LABS: ADD URINE MICROSCOPIC NO
[2016-12-21] MEDS ORDERED: GLUCOPHAGE PO SCH (17:30)
== END 2016-12-21 14:17 | disposition home or self-care (01) ==
LOC: ED 11:30
DX: E10.9 Type 1 diabetes mellitus without complications (principal); Z79.4 Long term (current) use of insulin; F17.210 Nicotine dependence, cigarettes, uncomplicated
CPT/HCPCS: 36415; 80053; 81001; 82009; 82550; 82553; 82803; 82962; 83605; 83880; 84145; 84484; 85025; 87040; 93005; 93010; 96361; 96374; 99283

== ENCOUNTER 2017-03-18 00:04 | Emergency (ER) ==
[2017-03-18 00:07] VITALS: BP 130/80; TEMP 98.4; BMI 19.5
[2017-03-18] MEDS ORDERED: SOLU-MEDROL 125 MG IM STA (00:19)
[2017-03-18] MEDS ORDERED: CLARITIN PO STA (00:20)
--- NOTE | 2017-03-18 00:21 | ED.PDOC ---
General ED Provider: Dr. ASHLEY ANGEL Chief Complaint: Non-specific Complaint Stated Complaint: Patient is a 32 year old who states he tattoed himself on the left arm two days ago now noticed that it was swelling and itchy. Time Seen by Physician: 00:19 Mode of Arrival: Walk-In Information Source: Patient Exam Limitations: No limitations [facility] Documentation Reviewed and Agree: Yes Skin Complaint Exam - Skin Rash/Itching Complaint/Exam Onset/Duration: 1 day Symptoms Are: Still present Initial Severity: Moderate Current Severity: Moderate Location: Left arm in area of new fresh tattoo Potential Exposures: Reports: Other (Tattoo) Prior Treatment: none Aggravating: Reports: Heat Alleviating: Reports: None Associated Signs and Symptoms: Denies: Difficulty breathing, Fever, Chills Skin Findings: Present: Vesicles Body Picture: 1 - 5 cm area of raised irritated skin following a new tattoo ink line. Differential Diagnoses: Contact Dermatitis Review of Systems - Review Of Systems Constitutional: Reports: No symptoms Eyes: Reports: No symptoms Ears, Nose, Mouth, Throat: Reports: No symptoms Respiratory: Reports: No symptoms Cardiac: Reports: No symptoms GI: Reports: No symptoms : Reports: No symptoms Musculoskeletal: Reports: No symptoms Skin: Reports: Rash (Left arm ) Neurological: Reports: No symptoms Endocrine: Reports: No symptoms Hematologic/Lymphatic: Reports: No symptoms All Other Systems: Reviewed and Negative Past Medical History - Past Medical History Previously Healthy: Yes Endocrine: Reports: None Cardiovascular: Reports: None Respiratory: Reports: None Hematological: Reports: None Gastrointestinal: Reports: None Genitourinary: Reports: None Neuro/Psych: Reports: None Musculoskeletal: Reports: Joint Pain (Carple tunnel ) Cancer: Reports: None - Surgical History General Surgical History: Reports: Unknown - Family History Family History: Reports: Unknown - Social History Smoking Status: Current every day smoker, Heavy tobacco smoker Hx Substance Use: No Alcohol Screening: None - Immunizations Tetanus Shot up to Date: Yes Physical Exam - Physical Exam Appearance: Ill-appearing, No pain distress, Well-nourished Ill-appearing: Mild Eyes: SCAR Neck: Supple Respiratory: Airway patent, Breath sounds clear, Breath sounds equal, Respirations nonlabored Cardiovascular: RRR, Pulses normal, No rub, No murmur GI/: Soft, Nontender, No masses, Bowel sounds normal, No Organomegaly Musculoskeletal: Normal strength, ROM intact, No edema, No calf tenderness Skin: Warm Neurological: Sensation intact, Motor intact, Alert, Oriented Psychiatric: Anxious Critical Care Note - Critical Care Note Total Time (mins): 0 Course - Course Vital Signs: Temp Pulse Resp BP Pulse Ox 03/18/17 00:04 98.4 F 79 16 130/80 97 Departure - Departure Time of Disposition: 00:31 Disposition: HOME SELF-CARE Discharge Problem: Contact dermatitis due to dye Qualifiers: Contact dermatitis type: allergic Qualified Code(s): L23.4 - Allergic contact dermatitis due to dyes Instructions: Contact Dermatitis (ED) Condition: Fair Pt referred to PMD for follow-up: Yes Additional Instructions: Adjust your sliding scale to keep up with elevated blood glucose as a result of steroid Stop getting tattoos for now Use over the counter steroids Hydrocortisone cream twice a day. Prescriptions: Hydroxyzine HCl [Atarax] 25 mg PO TID PRN #25 tablet PRN Reason: Allergy Symptoms Loratadine [Claritin] 10 mg PO DAILY #14 tablet Methylprednisolone [Medrol Dosepak] 4 mg PO DIRECTED #1 pkg Allergies/Adverse Reactions: Allergies No Known Allergies Allergy (Verified 03/18/17 00:07) Home Medications: Ambulatory Orders Insulin Regular, Human [Humulin R] 100 unit IJ DIRECTED PRN vial 12/16/16 Blood Sugar Diagnostic [Glucose Test Strip] 1 each MC Q3-4H PRN #200 strip 12/21 Metformin HCl [Glucophage] 1,000 mg PO BID #120 tablet 12/21/16 Hydroxyzine HCl [Atarax] 25 mg PO TID PRN #25 tablet 03/18/17 Loratadine [Claritin] 10 mg PO DAILY #14 tablet 03/18/17 Methylprednisolone [Medrol Dosepak] 4 mg PO DIRECTED #1 pkg 03/18/17 Disposition Discussed With: Patient
== END 2017-03-18 00:51 | disposition home or self-care (01) ==
LOC: ED 00:04
DX: L23.4 Allergic contact dermatitis due to dyes (principal); F17.210 Nicotine dependence, cigarettes, uncomplicated
CPT/HCPCS: 96372; 99282

== ENCOUNTER 2017-06-08 15:39 | Outpatient (CLI) ==
[2017-06-08 15:53] LABS: BASOPHILS % (AUTO) 0.3 % (0.0-3.0); EOSINOPHILS # (AUTO) 0.1 K/ul (0.0-0.7); EOSINOPHILS % (AUTO) 1.4 % (0.0-7.0); HEMATOCRIT 45.1 % (42.0-52.0); IMMATURE GRANULOCYTE % (AUTO) 0.2 % (0.0-5.0); LYMPHOCYTES # (AUTO) 1.7 K/uL (0.60-3.4); LYMPHOCYTES % (AUTO) 25.7 (10.0-50.0); MEAN CORPUSCULAR HEMOGLOBIN 30.9 pg (27.0-31.0); MEAN CORPUSCULAR HGB CONC 35.5 (31.8-35.4); MEAN CORPUSCULAR VOLUME 87.1 fl (80.0-94.0); MONOCYTES # (AUTO) 0.4 K/uL (0.4-2.0); MONOCYTES % (AUTO) 6.3 (0-10); NEUTROPHILS # (AUTO) 4.3 K/ul (2.0-6.9); NEUTROPHILS % (AUTO) 66.1; PLATELET COUNT 248 10^3/uL (140-440); RED BLOOD COUNT 5.18 10^6/ul (4.70-6.10); WHITE BLOOD COUNT 6.47 K/ul (4.2-10.2)
[2017-06-08 16:31] LABS: ALBUMIN 4.3 g/dL (3.4-5.0); ALBUMIN/GLOBULIN RATIO 1.05; ANION GAP 16.1; BILIRUBIN,TOTAL 0.57 mg/dL (0.00-1.20); BUN/CREATININE RATIO 10.89; CALCIUM 10.2 mg/dL (8.2-10.2); CHOL/HDL RATIO 3.2 (4.5-6.4); CREATININE 1.01 mg/dL (0.60-1.10); POTASSIUM 4.1 mmol/L (3.5-5.1); TOTAL PROTEIN 8.4 g/dL (6.4-8.2)
[2017-06-09 20:55] LABS: C-PEPTIDE 0.7 ng/mL (1.1-4.4); INSULIN 9.7 uIU/mL (2.6-24.9)
== END 2017-06-08 15:40 | disposition home or self-care (01) ==
LOC: LAB 15:39
PROVIDERS: ATTEND Emergency Medicine
DX: E11.9 Type 2 diabetes mellitus without complications (principal); I10 Essential (primary) hypertension
CPT/HCPCS: 36415; 80053; 80061; 83036; 83525; 84443; 84681; 85025

== ENCOUNTER 2017-06-28 21:25 | Emergency (ER) ==
[2017-06-28 21:34] VITALS: BP 145/84; TEMP 99.1; BMI 20.1
--- NOTE | 2017-06-28 22:06 | DI ---
EXAM: Chest two views HISTORY: Left rib pain FINDINGS: Normal cardiac and mediastinal contours. Normal pulmonary vasculature. Lungs are clear. No significant abnormality of the bony thorax. IMPRESSION: Chest radiograph within normal limits.
--- NOTE | 2017-06-28 22:11 | CT ---
EXAM: CT head without contrast 06/28/2017. Sagittal and coronal reformatted images obtained HISTORY: Pain COMPARISON: 12/08/2016 FINDINGS: There is no evidence of intracranial hemorrhage. The midline is maintained. There is no h ydrocephalus. No cerebellar tonsillar ectopia. Evaluation of the calvarium shows no fracture. Th e mastoid air cells are normally pneumatized. IMPRESSION: No acute intracranial abnormality.
--- NOTE | 2017-06-28 22:42 | ED.PDOC ---
General ED Provider: Dr. CHUCK CHU Chief Complaint: Non-specific Complaint Stated Complaint: Had head injury and injury to left ribs, hurts to breath. Time Seen by Physician: 22:39 Mode of Arrival: Walk-In Information Source: Patient Primary Care Provider: [facility] Nursing and Triage Documentation Reviewed and Agree: No Reviewed sepsis parameters & appropriate labs ordered?: No System Inflammatory Response Syndrome: Not Applicable Sepsis Protocol: For patient's 13 years and over: Temp is 96.8 and below OR 101 and greater Pulse >90 BPM Resp >20/minute Acutely Altered Mental Status Are patient's symptoms suggestive of a new infection, such as: -Pneumonia -Skin, Soft Tissue -Endocarditis -UTI -Bone, Joint Infection -Implantable Device -Acute Abdominal Infection -Wound Infection -Meningitis -Blood Stream Catheter Infection -Unknown Trauma/Injury Complaint Exam - Head Injury Complaint/Exam Location of Pain: Reports: Scalp, Forehead Mechanism of Injury: Reports: Trauma Symptoms Are: Still present Initial Severity: Mild Current Severity: Mild Character: Reports: Dull Aggravating: Reports: None Alleviating: Reports: None Associated Signs and Symptoms: Denies: Confusion, Memory loss, Seizure, Epistaxis, Dental malocclusion, Neck pain, Nausea, Vomiting Loss of Consciousness: None Related History: Reports: Similar episode SDH Risk Factors: Present: None Cervical Spine Injury Risk Factors: Present: None Related Surgical History: Reports: None Immobilization Removed Post Exam: No Head Injury Findings: Present: Normal findings Focal Weakness: Present: None Focal Sensory Loss: Present: None Gait: Normal Gag Reflex Present: No Finger to Nose: Normal Rhomberg Test Positive: No Babinski Sign: Negative Right, Negative Left Heel to Toe Normal: No Differential Diagnoses: Trauma Review of Systems - Review Of Systems Constitutional: Reports: No symptoms Eyes: Reports: No symptoms Ears, Nose, Mouth, Throat: Reports: No symptoms Respiratory: Reports: No symptoms Cardiac: Reports: No symptoms GI: Reports: No symptoms : Reports: No symptoms Musculoskeletal: Reports: No symptoms Skin: Reports: No symptoms Neurological: Reports: No symptoms Endocrine: Reports: No symptoms Hematologic/Lymphatic: Reports: No symptoms All Other Systems: Reviewed and Negative Past Medical History - Past Medical History Previously Healthy: Yes Endocrine: Reports: None Cardiovascular: Reports: None Respiratory: Reports: None Hematological: Reports: None Gastrointestinal: Reports: None Genitourinary: Reports: None Neuro/Psych: Reports: None Musculoskeletal: Reports: Joint Pain (Carple tunnel ) Cancer: Reports: None - Surgical History General Surgical History: Reports: Unknown - Family History Family History: Reports: Unknown - Social History Smoking Status: Current every day smoker, Heavy tobacco smoker Smoking Cessation Counseling Time: > 3 min - 10 min Hx Substance Use: No Alcohol Screening: None - Immunizations Tetanus Shot up to Date: Yes Physical Exam - Physical Exam Appearance: Well-appearing, No pain distress, Well-nourished Eyes: SCAR, EOMI, Conjunctiva clear ENT: Ears normal, Nose normal, Oropharynx normal Respiratory: Airway patent, Breath sounds clear, Breath sounds equal, Respirations nonlabored Cardiovascular: RRR, Pulses normal, No rub, No murmur GI/: Soft, Nontender, No masses, Bowel sounds normal, No Organomegaly Musculoskeletal: Normal strength, ROM intact, No edema, No calf tenderness Skin: Warm, Dry, Normal color Neurological: Sensation intact, Motor intact, Reflexes intact, Cranial nerves intact, Alert, Oriented Psychiatric: Affect appropriate, Mood appropriate Interpretation - Radiology Interpretation Radiology Interpretation By: Radiologist Radiology Results: Negative Exam Interpreted: CT Scan Critical Care Note - Critical Care Note Total Time (mins): 10 Course - Course Orders, Labs, Meds: Orders Category Date Time Status ACCUCHECK (ED) [ED ACCUCHECK ASSESSMENT] .ONCE EMERGENCY 06/28/17 21:46 Active CHEST, 2 VIEWS PA & LAT Stat RADS 06/28/17 21:[address] HEAD W/O CONTRAST Stat RADS 06/28/17 21:42 Completed Vital Signs: Temp Pulse Resp BP Pulse Ox 06/28/17 21:26 99.1 F 84 18 145/84 H 98 Departure - Departure Time of Disposition: 22:46 Disposition: HOME SELF-CARE Discharge Problem: Head injury Qualifiers: Encounter type: initial encounter Qualified Code(s): S09.90XA - Unspecified injury of head, initial encounter Rib contusion Qualifiers: Encounter type: initial encounter Laterality: left Qualified Code(s): S20.212A - Contusion of left front wall of thorax, initial encounter Instructions: Head Injury (ED) Condition: Stable Pt referred to PMD for follow-up: Yes Additional Instructions: Keep checking Blood sugars tYLENOL PRN F/U IN rhc Prescriptions: Guaifenesin/Codeine Phosphate [Robitussin AC Syrup] 10 ml PO Q6H #1 bottle Allergies/Adverse Reactions: Allergies No Known Allergies Allergy (Verified 06/28/17 21:31) Home Medications: Ambulatory Orders Insulin Regular, Human [Humulin R] 1 unit IJ DIRECTED PRN vial 12/16/16 Blood Sugar Diagnostic [Glucose Test Strip] 1 each MC Q3-4H PRN #200 strip 12/21 Metformin HCl [Glucophage] 1,000 mg PO BID #120 tablet 12/21/16 Hydroxyzine HCl [Atarax] 25 mg PO TID PRN #25 tablet 03/18/17 Loratadine [Claritin] 10 mg PO DAILY #14 tablet 03/18/17 Guaifenesin/Codeine Phosphate [Robitussin AC Syrup] 10 ml PO Q6H #1 bottle 06/28 Disposition Discussed With: Patient, Family
== END 2017-06-28 22:55 | disposition home or self-care (01) ==
LOC: ED 21:25
DX: S09.90XA Unspecified injury of head, initial encounter (principal); S20.212A Contusion of left front wall of thorax, initial encounter; R73.09 Other abnormal glucose; W22.8XXA Striking against or struck by other objects, initial encounter; F17.210 Nicotine dependence, cigarettes, uncomplicated
CPT/HCPCS: 82962; 99282

== ENCOUNTER 2017-09-20 16:10 | Outpatient (CLI) | END 2017-09-20 16:11 | disposition home or self-care (01) | LOC: RHC-LAB 16:10 | PROVIDERS: ATTEND Emergency Medicine | DX: E11.9 Type 2 diabetes mellitus without complications (principal); I10 Essential (primary) hypertension | CPT/HCPCS: 36415; 80053; 80061; 83036; 84443; 85025 ==

== ENCOUNTER 2017-12-12 22:55 | Emergency (ER) ==
[2017-12-12 23:06] VITALS: BP 151/95; TEMP 98.2; BMI 19.6
--- NOTE | 2017-12-12 23:29 | ED.PDOC ---
General ED Provider: Dr. ASHLEY ANGEL Chief Complaint: Diabetes Stated Complaint: Patient was confused about the insulin syringes he got from the pharmacy. Wanted to clafiry. Also blood gluocose was 525 . Upon arrval it was 282 in the ER Time Seen by Physician: 23:27 Mode of Arrival: Walk-In Information Source: Patient Primary Care Provider: CHUCK CHU-[facility] Nursing and Triage Documentation Reviewed and Agree: Yes Reviewed sepsis parameters & appropriate labs ordered?: No System Inflammatory Response Syndrome: Not Applicable Sepsis Protocol: For patient's 13 years and over: Temp is 96.8 and below OR 101 and greater Pulse >90 BPM Resp >20/minute Acutely Altered Mental Status Are patient's symptoms suggestive of a new infection, such as: -Pneumonia -Skin, Soft Tissue -Endocarditis -UTI -Bone, Joint Infection -Implantable Device -Acute Abdominal Infection -Wound Infection -Meningitis -Blood Stream Catheter Infection -Unknown Review of Systems - Review Of Systems Constitutional: Reports: No symptoms Eyes: Reports: No symptoms Ears, Nose, Mouth, Throat: Reports: No symptoms Respiratory: Reports: No symptoms Cardiac: Reports: No symptoms GI: Reports: No symptoms : Reports: No symptoms Musculoskeletal: Reports: No symptoms Skin: Reports: No symptoms Neurological: Reports: Anxiety Endocrine: Reports: No symptoms Hematologic/Lymphatic: Reports: No symptoms All Other Systems: Reviewed and Negative Past Medical History - Past Medical History Previously Healthy: Yes Endocrine: Reports: None Cardiovascular: Reports: None Respiratory: Reports: None Hematological: Reports: None Gastrointestinal: Reports: None Genitourinary: Reports: None Neuro/Psych: Reports: None Musculoskeletal: Reports: Joint Pain (Carple tunnel ) Cancer: Reports: None - Surgical History General Surgical History: Reports: Unknown - Family History Family History: Reports: Unknown - Social History Smoking Status: Current every day smoker, Heavy tobacco smoker Hx Substance Use: No Alcohol Screening: None - Immunizations Tetanus Shot up to Date: Yes Physical Exam - Physical Exam Appearance: Well-appearing, No pain distress, Well-nourished Eyes: SCAR, EOMI, Conjunctiva clear ENT: Ears normal, Nose normal, Oropharynx normal Respiratory: Airway patent, Breath sounds clear, Breath sounds equal, Respirations nonlabored Cardiovascular: RRR, Pulses normal, No rub, No murmur GI/: Soft, Nontender, No masses, Bowel sounds normal, No Organomegaly Musculoskeletal: Normal strength, ROM intact, No edema, No calf tenderness Skin: Warm, Dry, Normal color Neurological: Sensation intact, Motor intact, Reflexes intact, Cranial nerves intact, Alert, Oriented Psychiatric: Anxious Critical Care Note - Critical Care Note Total Time (mins): 0 Course - Course Vital Signs: Temp Pulse Resp BP Pulse Ox 12/12/17 22:56 98.2 F 73 20 151/95 H 96 Departure - Departure Time of Disposition: 23:29 Disposition: HOME SELF-CARE Discharge Problem: Diabetes mellitus Qualifiers: Diabetes mellitus type: type 1 Diabetes mellitus complication status: with unspecified complications Qualified Code(s): E10.8 - Type 1 diabetes mellitus with unspecified complications Instructions: How to Give an Insulin Injection (ED), What to Do if Your Blood Sugar is Low (ED) Condition: Stable Pt referred to PMD for follow-up: Yes IPMP verified?: No Additional Instructions: Follow up with PCP in 1-2 days for further education on insulin use Allergies/Adverse Reactions: Allergies No Known Allergies Allergy (Verified 12/12/17 23:04) Home Medications: Ambulatory Orders Blood Sugar Diagnostic [Glucose Test Strip] 1 each MC Q3-4H PRN #200 strip 12/21 Metformin HCl [Glucophage] 1,000 mg PO BID #120 tablet 12/21/16 Disposition Discussed With: Patient, Family (sister )
== END 2017-12-12 23:35 | disposition home or self-care (01) ==
LOC: ED 22:55
DX: E10.65 Type 1 diabetes mellitus with hyperglycemia (principal); F17.210 Nicotine dependence, cigarettes, uncomplicated
CPT/HCPCS: 99283

== ENCOUNTER 2018-02-14 15:50 | Outpatient (CLI) | END 2018-02-14 15:51 | disposition home or self-care (01) | LOC: RHC-LAB 15:50 | PROVIDERS: ATTEND Emergency Medicine | DX: E11.9 Type 2 diabetes mellitus without complications (principal); I10 Essential (primary) hypertension | CPT/HCPCS: 36415; 80053; 80061; 82043; 83036; 84443; 85025 ==

== ENCOUNTER 2018-07-04 14:44 | Outpatient (CLI) | END 2018-07-04 14:45 | disposition home or self-care (01) | LOC: RHC-LAB 14:44 | PROVIDERS: ATTEND Nurse Practitioner Family | DX: E11.9 Type 2 diabetes mellitus without complications (principal); I10 Essential (primary) hypertension; N52.9 Male erectile dysfunction, unspecified | CPT/HCPCS: 36415; 80053; 80061; 83036; 84403; 85025 ==

== ENCOUNTER 2018-08-08 23:29 | Emergency (ER) | payer OTHER ==
[2018-08-08 23:46] VITALS: BMI 19.8
[2018-08-09] MEDS ORDERED: SODIUM CHLORIDE 1,000 ML IV STA ×2 (00:01)
--- NOTE | 2018-08-09 00:58 | ED.PDOC ---
General ED Provider: Dr. ASHLEY ANGEL Chief Complaint: Diabetes Stated Complaint: Patient is a 33 year old male who comes to the ER with dizziness. He is a poorly controlled Diabetic who is non complaint with his diet. States his blood glucose was high at home but does not remember. Has been feeling nauseated and dizzy and vomited. Time Seen by Physician: 23:55 Mode of Arrival: Walk-In Information Source: Patient Primary Care Provider: KANDI CUNNINGHAM Nursing and Triage Documentation Reviewed and Agree: Yes Does patient meet sepsis criteria?: No System Inflammatory Response Syndrome: Not Applicable Sepsis Protocol: For patient's 13 years and over: Temp is 96.8 and below OR 101 and greater Pulse >90 BPM Resp >20/minute Acutely Altered Mental Status Are patient's symptoms suggestive of a new infection, such as: -Pneumonia -Skin, Soft Tissue -Endocarditis -UTI -Bone, Joint Infection -Implantable Device -Acute Abdominal Infection -Wound Infection -Meningitis -Blood Stream Catheter Infection -Unknown Endocrine Complaint Exam - Diabetic Complication Complaint/Exam Onset/Duration: i hour Symptoms Are: Still present Timing: Constant Initial Severity: Moderate Current Severity: Moderate Aggravating: Reports: None Associated Signs and Symptoms: Denies: Decreased LOC, Polydipsia, Polyuria, Polyphagia, Weight loss, Abdominal pain, Nausea, Vomiting, Fever, Diaphoresis, Fruity breath Related History: Reports: DM 2 Cardiac Risk Factors: Reports: DM Acetone on Breath: No Dry Mucous Membranes: Yes Kussmaul Respirations: No Glascow Coma Scale (see protocol): 15 Meningeal Signs: No Focal Weakness: None Focal Sensory Loss: None Gait: Normal Nystagmus Present: No Gag Reflex Present: No Finger to Nose: Normal Romberg Test Positive: No Babinski Sign: Negative Right, Negative Left Differential Diagnoses: Diabetic Ketoacidosis, Hyperglycemia Review of Systems - Review Of Systems Constitutional: Reports: No symptoms Eyes: Reports: No symptoms Ears, Nose, Mouth, Throat: Reports: No symptoms Respiratory: Reports: No symptoms Cardiac: Reports: No symptoms GI: Reports: Nausea, Vomiting : Reports: No symptoms Musculoskeletal: Reports: No symptoms Skin: Reports: No symptoms Neurological: Reports: Anxiety Endocrine: Reports: No symptoms Hematologic/Lymphatic: Reports: No symptoms All Other Systems: Reviewed and Negative Past Medical History - Past Medical History Previously Healthy: Yes Endocrine: Reports: None Cardiovascular: Reports: None Respiratory: Reports: None Hematological: Reports: None Gastrointestinal: Reports: None Genitourinary: Reports: None Neuro/Psych: Reports: None Musculoskeletal: Reports: Joint Pain (Car[place] tunnel ) Cancer: Reports: None - Surgical History General Surgical History: Reports: Unknown - Family History Family History: Reports: Unknown - Social History Smoking Status: Current every day smoker, Heavy tobacco smoker Hx Substance Use: No Alcohol Screening: None - Immunizations Tetanus Shot up to Date: Yes Physical Exam - Physical Exam Appearance: Thin Eyes: SCAR, EOMI, Conjunctiva clear ENT: Ears normal, Nose normal, Oropharynx normal Respiratory: Airway patent, Breath sounds clear, Breath sounds equal, Respirations nonlabored Cardiovascular: RRR, Pulses normal, No rub, No murmur GI/: Soft, Nontender, No masses, Bowel sounds normal, No Organomegaly Musculoskeletal: Normal strength, ROM intact, No edema, No calf tenderness Skin: Warm, Dry, Normal color Neurological: Sensation intact, Motor intact, Reflexes intact, Cranial nerves intact, Alert, Oriented Psychiatric: Affect appropriate, Mood appropriate Re-Evaluation - Re-Evaluation Time of Re-Evaluation: 06:55 Status: Improved Additional Comments: Blood glucose 231 Critical Care Note - Critical Care Note Total Time (mins): 45 Course - Course Hematology/Chemistry: 08/09/18 00:15 08/09/18 00:15 Orders, Labs, Meds: Lab Review 08/09/18 08/09/18 08/09/18 00:00 00:15 00:15 WBC 7.57 RBC 4.81 Hgb 14.2 Hct 41.3 L MCV 85.9 MCH 29.5 MCHC 34.4 RDW Coeff of Nory 11.7 Plt Count 257 Immature Gran % (Auto) 0.5 Neut % (Auto) 64.4 Lymph % (Auto) 28.4 [place] % (Auto) 5.5 Eos % (Auto) 0.9 Baso % (Auto) 0.3 Immature Gran # (Auto) 0.0 Neut # (Auto) 4.9 Lymph # (Auto) 2.2 [place] # (Auto) 0.4 Eos # (Auto) 0.1 Baso # (Auto) 0.0 Puncture Site Lrad O2 Saturation 72.0 L ABG pH 7.396 ABG pCO2 40.6 ABG pO2 38.0 L* ABG HCO3 25 ABG Total CO2 26 ABG Base Excess 0 Joel Test + FiO2 % 21.0 Sodium 135.2 Potassium 4.61 Chloride 94.0 L Carbon Dioxide 29.7 Anion Gap 16.11 BUN 16.7 Creatinine 0.86 Estimated GFR (MDRD) 102.00 BUN/Creatinine Ratio 19.41 Glucose 610.3 H* Hemoglobin A1c Calcium 9.37 Total Bilirubin 0.50 AST 29.2 ALT 20.2 Alkaline Phosphatase 90.1 Total Protein 7.39 Albumin 4.50 Globulin 2.89 Albumin/Globulin Ratio 1.55 Acetone, Qual 08/09/18 08/09/18 00:15 00:15 WBC RBC Hgb Hct MCV MCH MCHC RDW Coeff of Nory Plt Count Immature Gran % (Auto) Neut % (Auto) Lymph % (Auto) [place] % (Auto) Eos % (Auto) Baso % (Auto) Immature Gran # (Auto) Neut # (Auto) Lymph # (Auto) [place] # (Auto) Eos # (Auto) Baso # (Auto) Puncture Site O2 Saturation ABG pH ABG pCO2 ABG pO2 ABG HCO3 ABG Total CO2 ABG Base Excess Joel Test FiO2 % Sodium Potassium Chloride Carbon Dioxide Anion Gap BUN Creatinine Estimated GFR (MDRD) BUN/Creatinine Ratio Glucose Hemoglobin A1c 13.77 H Calcium Total Bilirubin AST ALT Alkaline Phosphatase Total Protein Albumin Globulin Albumin/Globulin Ratio Acetone, Qual None Orders Category Date Time Status ABG DRAW REQUEST Stat CARDIO 08/09/18 00:01 Completed ACCUCHECK (ED) [ED ACCUCHECK ASSESSMENT] .ONCE EMERGENCY 08/08/18 23:50 Active ACCUCHECK (ED) [ED ACCUCHECK ASSESSMENT] .ONCE EMERGENCY 08/09/18 01:23 Active ACCUCHECK (ED) [ED ACCUCHECK ASSESSMENT] .ONCE EMERGENCY 08/09/18 02:00 Active ABG Stat LAB 08/09/18 00:00 Completed ACETONE, QUALITATIVE Stat LAB 08/08/18 23:51 Completed CBC W/ AUTO DIFF Stat LAB 08/08/18 23:50 Completed COMPREHENSIVE METABOLIC PANEL Stat LAB 08/08/18 23:50 Completed HEMOGLOBIN A1C Stat LAB 08/08/18 23:51 Completed Insulin Regular, Human [Humulin R] MEDS 08/09/18 01:33 Discontinued 12 unit SUBCUT ONCE STA Sodium Chloride 0.9% [Sodium Chloride] 1,000 ml MEDS 08/09/18 00:00 Discontinued IV BOLUS Sodium Chloride 0.9% [Sodium Chloride] 1,000 ml MEDS 08/09/18 00:01 Discontinued IV BOLUS Medications Discontinued Medications Generic Name Dose Route Start Last Admin Trade Name Geraldo PRN Reason Stop Dose Admin Sodium Chloride 1,000 mls @ 1,000 mls/hr 08/09/18 00:00 08/09/18 00:19 Sodium Chloride IV 08/09/18 00:59 1,000 mls/hr BOLUS STA Administration Sodium Chloride 1,000 mls @ 1,000 mls/hr 08/09/18 00:01 08/09/18 01:09 Sodium Chloride IV 08/09/18 01:00 1,000 mls/hr BOLUS STA Administration Insulin Human Regular 12 unit 08/09/18 01:33 08/09/18 01:43 Humulin R SUBCUT 08/09/18 01:34 12 unit ONCE STA Administration Vital Signs: Temp Pulse Resp BP Pulse Ox 08/09/18 02:00 97 F L 80 18 140/82 98 08/08/18 23:32 96.9 F L 85 20 142/89 H 98 Departure - Departure Time of Disposition: 06:50 Disposition: HOME SELF-CARE Discharge Problem: Hyperglycemia due to type 2 diabetes mellitus Qualifiers: Diabetes mellitus [facility] insulin use: with termination clerk use Qualified Code(s): E11.65 - Type 2 diabetes mellitus with hyperglycemia Instructions: Type 2 Diabetes in Adults: New Diagnosis (ED) Condition: Fair Pt referred to PMD for follow-up: Yes IPMP verified?: No Additional Instructions: Follow up with PCP in 1-2 days Follow your diabetic diet and continue home medications. Allergies/Adverse Reactions: Allergies No Known Allergies Allergy (Verified 08/08/18 23:46) Home Medications: Ambulatory Orders Blood Sugar Diagnostic [Glucose Test Strip] 1 each MC Q3-4H PRN #200 strip 12/21 Disposition Discussed With: Patient, Family
[2018-08-09] MEDS ORDERED: HUMALOG SUBCUT STA (01:23)
[2018-08-09] MEDS ORDERED: HUMULIN R SUBCUT STA (01:33)
[2018-08-09 07:18] VITALS: BP 140/82; TEMP 97
== END 2018-08-09 03:40 | disposition home or self-care (01) ==
LOC: ED 23:29
DX: E11.65 Type 2 diabetes mellitus with hyperglycemia (principal); R42 Dizziness and giddiness; F17.210 Nicotine dependence, cigarettes, uncomplicated; Z91.11 Patient's noncompliance with dietary regimen
CPT/HCPCS: 36415; 80053; 82009; 82803; 82962; 83036; 85025; 96360; 96361; 96372; 99284

== ENCOUNTER 2018-10-17 13:07 | Outpatient (CLI) | END 2018-10-17 13:08 | disposition home or self-care (01) | LOC: RHC-LAB 13:08 | PROVIDERS: ATTEND Nurse Practitioner Family | DX: E11.9 Type 2 diabetes mellitus without complications (principal); I10 Essential (primary) hypertension | CPT/HCPCS: 36415; 80053; 83036; 85025 ==

== ENCOUNTER 2024-01-11 07:45 | Inpatient (IN) ==
--- NOTE | 2024-01-11 08:01 | ED.PDOC ---
General ED Provider: Dr. SIMON MARTINEZ MD Chief Complaint: Nausea/Vomiting Stated Complaint: Nausea and vomiting Time Seen by Provider: 01/11/24 07:54 Mode of Arrival: Walk-In Information Source: Patient Exam Limitations: No limitations Primary Care Provider: VIJI DELGADO MD Nursing and Triage Documentation Reviewed and Agree: Yes Does Patient Take Opioids?: No Is Patient Opioid Naive?: No What is Opioid Naive?: *Opioid Naive implies the patient is not already taking opioids or not chronically receiving opioids on a daily basis. *PRN dosing is not "usually" associated with tolerance. *Patients are at higher risk of over-sedation and aspiration. Is Patient Opioid Tolerant?: No What is Opioid Tolerant?: *Opioid Tolerance implies less than the expected response to an opioid. *Acquired tolerance is defined by the patient taking 60mg of oral morphine daily (or equianalgesic dose of another opioid) for 1 week or more. *Often associated with chronic pain. *May take more than usual dose to achieve desired pain control. Details: Patient is a 38-year-old male with past medical history of diabetes mellitus that reports to the emergency department for nausea and vomiting x 1 day. Patient stated that he was working yesterday and started to get nauseated and had an episode of vomiting. Patient stated that he went home and tried to rest but has progressively gotten worse throughout the evening. Patient states that he just does not feel very well and cannot get rid of his nausea and vomiting. Patient states that he does not have a primary care physician and he has not taken his diabetes medication this morning. Patient states that he does see a diabetic specialist. Patient stated that he was diagnosed with diabetes back in 2017. Patient stated that he has had many episodes of uncontrolled blood glucose readings. Patient denied eating any foods that tasted abnormal to him yesterday, any recent travel outside the country, any recent camping trips or drinking from dirty water sources. Patient's denied any fever, abdominal pain, shortness of breath, chest pain, syncopal episodes, loss of consciousness, or any other acute symptoms not mentioned in the HPI. GI Complaint Exam Vomiting/Diarrhea Complaint/Exam Onset/Duration: Yesterday at approxi-1 PM. Symptoms Are: Still present Episodes of Vomiting over last 24 Hours: 3 Initial Severity: Moderate Current Severity: Moderate Character of Vomiting: Reports Non-bilious Character of Diarrhea: Reports Watery Aggravating: Reports None Alleviating: Reports None Associated Signs and Symptoms: Denies Dizziness, Light-headedness, Melena, Hematemesis, Fever, Abdominal pain or Cramping Last Oral Intake: This morning. Last Bowel Movement: Yesterday evening. Non-GI Risk Factors: Reports None Abdominal Findings: Present None; Absent Pulsatile mass, Abdominal distention, Rebound tenderness, Peritoneal signs, [place] tender or CVA Tenderness Kussmaul Respirations Present: No Differential Diagnoses: Viral Gastroenteritis, Bacterial Gastroenteritis and Other (Diabetes mellitus type 2 uncontrolled) Review of Systems Review Of Systems Constitutional: Reports No symptoms Eyes: Reports No symptoms Ears, Nose, Mouth, Throat: Reports No symptoms Respiratory: Reports No symptoms Cardiac: Reports No symptoms GI: Reports Nausea and Vomiting : Reports No symptoms Musculoskeletal: Reports No symptoms Skin: Reports No symptoms Neurological: Reports No symptoms Endocrine: Reports No symptoms Hematologic/Lymphatic: Reports No symptoms All Other Systems: Reviewed and Negative [facility] Medical History (Updated 01/11/24 @ 09:30 by SIMON MARTINEZ MD) Asthma J45.909 - Unspecified asthma, uncomplicated (ICD-10) Hypertension I10 - Essential (primary) hypertension (ICD-10) Chest pain R07.9 - Chest pain, unspecified (ICD-10) Hyperlipidemia E78.5 - Hyperlipidemia, unspecified (ICD-10) Diabetes mellitus E11.9 - Type 2 diabetes mellitus without complications (ICD-10) Shortness of breath R06.02 - Shortness of breath (ICD-10) Family History Mother Diabetes Alcoholism Cardiac disease Hypertension Grandfather/Grandmother Diabetes Social History Smoking and tobacco status: Current every day smoker Tobacco: How many years used: 25 Passive smoking exposure: Yes Quit status: not considering quitting Second hand smoke exposure: Yes Alcohol intake: never Substance use type: does not use Xochitl/holiness: Faith Special xochitl needs: No Agree to transfusion: Yes Adopted: No Caregiver/support person: No Foster care: No Household members: none Housing: house Lives independently: Yes Highest education level completed: high school graduate Financial difficulty paying for basics: not applicable service: No long-term: No Current occupational status: employed Current occupational exposures/hazards: Yes Pets and animals: Yes History of recent travel: No Sexually active: Yes Do you think of yourself as: straight/heterosexual Current gender identity: male Seatbelt use: always Helmet use: No Drives intoxicated or rides with intoxicated sulky driver: No Water heater temperature set < 120 degrees: Yes Working smoke detector in home: Yes Fire extinguisher in home: Yes Carbon monoxide detector in home: Yes Firearms in home: No Physical Exam Physical Exam Appearance: Reports Well-appearing, No pain distress and Well-nourished Ill-appearing: None Pain Distress: None Eyes: Reports SCAR, EOMI and Conjunctiva clear ENT: Reports Ears normal, Nose normal and Oropharynx normal Neck: Supple Respiratory: Reports Airway patent, Breath sounds clear, Breath sounds equal and Respirations nonlabored Cardiovascular: Reports RRR, Pulses normal, No rub and No murmur GI/: Reports Soft, Nontender, No masses, Bowel sounds normal and No Organomegaly Musculoskeletal: Reports Normal strength, ROM intact, No edema and No calf tenderness Skin: Reports Warm, Dry and Normal color Neurological: Reports Sensation intact, Motor intact, Reflexes intact, Cranial nerves intact, Alert and Oriented Psychiatric: Reports Affect appropriate and Mood appropriate Critical Care Note Critical Care Note Total Critical Care Time (mins): 60 Comments: Authorized and Performed by: Dr. Simon Martinez MD, MPH Total critical care time: [id number] Due to a high probability of clinically significant, life threatening deterioration, the patient required my highest level of preparedness to intervene emergently and I personally spent this critical care time directly and personally managing the patient. This critical care time included obtaining a history; examining the patient; pulse oximetry; ordering and review of studies; arranging urgent treatment with development of a management plan; evaluation of patient's response to treatment; frequent reassessment; and, discussions with other providers. This critical care time was performed to assess and manage the high probability of imminent, life-threatening deterioration that could result in multi-organ failure. It was exclusive of separately billable procedures and treating other patients and teaching time. Please see MDM section and the rest of the note for further information on patient assessment and treatment. Course Course 01/11/24 08:05 01/11/24 08:05 Orders, Labs, Meds: Lab Review 01/11/24 08:05 WBC 11.60 H RBC 5.38 Hgb 15.9 Hct 46.8 MCV 87.0 MCH 29.6 MCHC 34.0 RDW Coeff of Nory 11.8 Plt Count 295 Immature Gran % (Auto) 0.9 Neut % (Auto) 78.1 H Lymph % (Auto) 15.3 [place] % (Auto) 4.9 Eos % (Auto) 0.2 Baso % (Auto) 0.6 Neut # (Auto) 9.1 H Lymph # (Auto) 1.8 [place] # (Auto) 0.6 Eos # (Auto) 0.0 Baso # (Auto) 0.1 Immature Gran # (Auto) 0.1 Sodium 134.5 Potassium 5.02 Chloride 99.4 Carbon Dioxide 6.2 L* Anion Gap 33.92 BUN 14.5 Creatinine 1.02 Estimated GFR (MDRD) 82.00 BUN/Creatinine Ratio 14.21 Glucose 388.2 H Lactic Acid 1.65 Calcium 9.79 Total Bilirubin 0.81 AST 29.4 ALT 24.2 Alkaline Phosphatase 91.3 Total Protein 8.92 H Albumin 5.69 H Globulin 3.23 Albumin/Globulin Ratio 1.76 Lipase 33.0 Acetone, Qual Small Orders Category Date Time Status ED ACCUCHECK ASSESSMENT .ONCE EMERGENCY 01/11/24 08:07 Active ACETONE, QUALITATIVE Stat LAB 01/11/24 08:05 Completed CBC W/ AUTO DIFF Stat LAB 01/11/24 08:05 Completed CMP [COMPREHENSIVE METABOLIC PANEL] Stat LAB 01/11/24 08:05 Completed LACTIC ACID Stat LAB 01/11/24 08:05 Completed LIPASE Stat LAB 01/11/24 08:05 Completed VBG [VENOUS BLOOD GAS] Stat LAB 01/11/24 08:57 Ordered Insulin Regular, Human [Humulin R (10Ml)] Meds 01/11/24 08:07 Discontinued 6 unit IVP ONCE STA Ondansetron HCl/Pf [Zofran 4 mg/2 ml] Meds 01/11/24 07:54 Discontinued 4 mg IVP ONCE STA Sodium Chloride 0.9% [Sodium Chloride] 1,000 ml Meds 01/11/24 07:54 Discontinued IV BOLUS Medications Discontinued Medications Generic Name Dose Route Start Last Admin Trade Name Freq PRN Reason Stop Dose Admin Sodium Chloride 1,000 mls @ 1,000 mls/hr 01/11/24 07:54 01/11/24 08:21 Sodium Chloride IV 01/11/24 08:53 1,000 mls/hr BOLUS ONE Administration Insulin Human Regular 6 unit 01/11/24 08:07 01/11/24 08:22 Insulin Regular, Human 100 Unit/Ml (10ml) Vial 0.1 unit/kg (6 unit) 01/11/24 08:08 6 unit IVP Administration ONCE STA Ondansetron HCl 4 mg 01/11/24 07:54 01/11/24 08:21 Ondansetron Hcl/Pf 4 Mg/2 Ml Sdv IVP 01/11/24 07:55 4 mg ONCE STA Administration Vital Signs: Temp Pulse Resp BP Pulse Ox 01/11/24 07:52 98.4 F 120 H 20 116/88 99 Discharge Plan Discharge Patient Disposition: ADMITTED INPATIENT Discharge Problem: Nausea, Vomiting, DKA (diabetic ketoacidosis) Diabetes type 2, uncontrolled Qualifiers: Glycemic state: with hyperglycemia Qualified Code(s): E11.65 - Type 2 diabetes mellitus with hyperglycemia Instructions: Type 2 Diabetes Management for Adults (ED) Prescriptions: No Action (DME) blood-glucose meter [ReliOn Micro Glucose Monitor] 1 EACH misc 1 ea MC TID Qty: 90 (DME) insulin syringe-needle U-100 [Easy Touch Insulin Syringe] 1 EACH syringe 1 ea MC TID Qty: 100 (DME) Blood Glucose Test 1 EACH strip 1 ea MC TID Qty: 100 insulin glargine [Lantus U-100 Insulin] 1 UNIT solution 30 unit subcut BEDTIME omeprazole magnesium [Prilosec OTC] 20 mg tablet,delayed release (DR/EC) 20 mg PO BID Qty: 20 0RF ibuprofen [IBU] 600 mg tablet 600 mg PO Q6H PRN (Reason: fever or pain) Qty: 30 1RF famotidine 20 mg tablet 20 mg PO BID Patient Comments: TAKE 1 TABLET BY MOUTH TWICE DAILY FOR HEARTBURN levothyroxine 25 mcg tablet 50 mcg PO DAILY Patient Comments: TAKE 1 TABLET BY MOUTH ONCE DAILY ON A EMPTY STOMACH BEFORE EATING ergocalciferol (vitamin D2) 1,250 mcg (50,000 unit) capsule 50,000 unit PO WEEKLY Patient Comments: TAKE 1 CAPSULE BY MOUTH ONCE A WEEK insulin lispro [Humalog U-100 Insulin] 100 unit/mL solution 1 sliding scale dose SUBCUT USEASDIRECTD gabapentin 300 mg capsule 300 mg PO BID Did you review [place] [employer] for ALL controlled substances?: Not Applicable Discussed opioids are addictive and Narcan is available by prescription or from pharmacy.: No ED Provider: SIMON MARTINEZ Condition: Fair Physician Progress Note: MDM: - Patient is a 38-year-old male that reported to the emergency department with nausea and vomiting. Patient is a known type II diabetic that is sometimes uncontrolled. Will give IV fluids, order baseline labs, get a bedside glucose, and give IV ondansetron 4 mg for nausea and vomiting. -Patient was found to have a blood glucose of 383 mg/dL. Will give 0.1 units/kg regular insulin, which for this patient will be a total of IV regular insulin 6 units. -Patient's anion gap is 33 and bicarb is 6.2. Will order VBG. -Patient's pH is 7.13, bicarb 8.8, and CO2 28. Patient is currently in DKA. Will give 1 amp of bicarb. -We have started the patient on DKA protocol. Patient is already received the initial insulin bolus and will now receive an insulin drip at 6 units/ per hour. IV half-normal saline with 20 mEq potassium will be ran at 250 mL an hour. Will contact hospitalist for admission. -At 0926 I spoke to hospitalist, Wild Gray NP and explained to her the patient's current condition which is DKA. I have given her the patient's current treatment and recommended inpatient hospitalization. She has agreed admit the patient to the hospital for inpatient services. -Will admit the patient for inpatient services to treat his DKA.
[2024-01-11 08:10] LABS: BASOPHILS # (AUTO) 0.1 K/uL (0-0.2); BASOPHILS % (AUTO) 0.6 % (0.0-3.0); EOSINOPHILS % (AUTO) 0.2 % (0.0-7.0); HEMATOCRIT 46.8 % (42.0-52.0); HEMOGLOBIN 15.9 g/dl (14.0-18.0); IMMATURE GRANULOCYTE # (AUTO) 0.1 (0.0-1.0); IMMATURE GRANULOCYTE % (AUTO) 0.9 % (0.0-5.0); LYMPHOCYTES # (AUTO) 1.8 K/uL (0.60-3.4); LYMPHOCYTES % (AUTO) 15.3 (10.0-50.0); MEAN CORPUSCULAR HEMOGLOBIN 29.6 pg (27.0-31.0); MONOCYTES # (AUTO) 0.6 K/uL (0.4-2.0); MONOCYTES % (AUTO) 4.9 (0-10); NEUTROPHILS # (AUTO) 9.1 K/ul (2.0-6.9); NEUTROPHILS % (AUTO) 78.1 % (42.2-75.2); PLATELET COUNT 295 10^3/uL (140-440); RDW COEFFICIENT OF VARIATION 11.8 % (11.6-14.8); RED BLOOD COUNT 5.38 10^6/ul (4.70-6.10)
[2024-01-11] MEDS: ZOFRAN 4 MG/2 ML IVP STA (08:21)
[2024-01-11] MEDS: SODIUM CHLORIDE 1,000 ML IV ONE (08:21)
[2024-01-11] MEDS: HUMULIN R (10ML) IVP STA (08:22)
[2024-01-11 08:39] LABS: ALANINE AMINOTRANSFERASE 24.2 U/L (0-50); ALBUMIN 5.69 g/dL (3.5-5.0); ALKALINE PHOSPHATASE 91.3 U/L (38-126); ASPARTATE AMINO TRANSFERASE 29.4 U/L (17-59); BILIRUBIN,TOTAL 0.81 mg/dL (0.2-1.3); BLOOD UREA NITROGEN 14.5 mg/dL (9-20); CALCIUM 9.79 mg/dL (8.4-10.2); CHLORIDE 99.4 mmol/L (98-107); CREATININE 1.02 mg/dL (0.60-1.10); GLUCOSE 388.2 mg/dL (74-106); POTASSIUM 5.02 mmol/L (3.5-5.1); SODIUM 134.5 mmol/L (134.5-145); TOTAL PROTEIN 8.92 g/dL (6.3-8.2)
[2024-01-11 08:48] LABS: CARBON DIOXIDE 6.2 mmol/L (22-30.0)
[2024-01-11 09:15] LABS: VBG HCO3 8.6 (22-26); VBG OXYGEN SATURATION 97.2 (60-80); VBG PH 7.13 (7.30-7.40)
[2024-01-11] MEDS: SODIUM CHLORIDE 1,000 ML IV SCH (09:27)
[2024-01-11] MEDS: SODIUM BICARBONATE 8.4% IVP STA (09:28)
[2024-01-11] MEDS: MYXREDLIN 100 UNIT/100 ML BAG 100 UNIT/100 ML PLAST..BAG IV SCH ×2 (09:36→12:05)
[2024-01-11 09:57] LABS: BILIRUBIN,URINE Negative (NEGATIVE); CLARITY,URINE Clear (CLEAR); COLOR,URINE Light (YELLOW); GLUCOSE, URINE (UA) 2+ (NEGATIVE); KETONES,URINE 4+ (NEGATIVE); LEUKOCYTE ESTERASE ,URINE Negative (NEGATIVE); NITRITE,URINE Negative (NEGATIVE); PH,URINE 5.5 (5-9); PROTEIN,URINE 1+ (NEGATIVE); URINE, BLOOD Negative (NEGATIVE); UROBILINOGEN,URINE 0.2 (0.2)
[2024-01-11 10:07] LABS: AMPHETAMINE SCREEN,URINE NEGATIVE (NEGATIVE); BARBITURATE SCREEN,URINE NEGATIVE (NEGATIVE); BENZODIAZEPINES SCREEN,URINE NEGATIVE (NEGATIVE); CANNABINOID SCREEN,URINE NEGATIVE (NEGATIVE); COCAIN SCREEN,URINE NEGATIVE (NEGATIVE); METHADONE URINE SCREEN NEGATIVE (NEGATIVE); METHAMPHETAMINES SCREEN,URINE NEGATIVE (NEGATIVE); OPIATE SCREEN,URINE NEGATIVE (NEGATIVE); OXYCODONE URINE SCREEN NEGATIVE (NEGATIVE); PHENCYCLIDINE SCREEN,URINE NEGATIVE (NEGATIVE); TRICYCLIC ANTIDEPRESSANTS URIN NEGATIVE (NEGATIVE)
[2024-01-11 10:08] LABS: BACTERIA,URINE TRACE (NOT PRESENT); MUCUS,URINE TRACE (NOT PRESENT); SQUAMOUS EPITHELIAL CELL,UR 0-2 (0-5); TRIPLE PHOSPHATE CRYSTAL,UR TRACE (NOT PRESENT); URINE RBC, MICROSCOPIC 0-2 (0-2)
[2024-01-11 10:09] LABS: OVAL FAT BODIES,URINE FEW (NOT PRESENT)
[2024-01-11 10:20] LABS: SARS COV-2 RNA RAPID NAAT NEGATIVE (NEGATIVE)
[2024-01-11 11:12] VITALS: BMI 18.1
--- NOTE | 2024-01-11 11:40 | PCM ---
Date of Service Date Seen by Provider: 01/11/24 Time Seen by Provider: 11:00 Admit Day/Time Admission Date: 01/11/24 Admission Time: 09:30 Reason for Admission Chief Complaint: DKA Hospital Provider Hospital Provider: ART WASHINGTON, [facility] [place] Primary Care Physician Primary Care Physician: VIJI DELGADO MD History of Present Illness History of Present Illness: 38 yo male presented to the ER with complaints of dizziness, nausea, and vomiting. Has pmh of DM1 diagnosed in 2017. Reported he has not been taking his insulin as prescribed. Denies any fever, chills, sob, diarrhea, bloody vomitus. States blood glucose has been running 300-400 at home. A1C was found to be 11. Glucose in ER was 388, Anion gap 33.8, Bicarb 8, pH 7.13. Admitted to med/surg inpatient for treatment of severe DKA. Case Discussed With Case Discussed With: Patient's case was discussed with the ER Physicians, Dr. Martinez. [facility] Medical History (Updated 01/11/24 @ 11:38 by ART WASHINGTON) Asthma J45.909 - Unspecified asthma, uncomplicated (ICD-10) Hypertension I10 - Essential (primary) hypertension (ICD-10) Chest pain R07.9 - Chest pain, unspecified (ICD-10) Hyperlipidemia E78.5 - Hyperlipidemia, unspecified (ICD-10) Diabetes mellitus E11.9 - Type 2 diabetes mellitus without complications (ICD-10) Shortness of breath R06.02 - Shortness of breath (ICD-10) Family History Mother Diabetes Alcoholism Cardiac disease Hypertension Grandfather/Grandmother Diabetes Social History Smoking and tobacco status: Current every day smoker Tobacco: How many years used: 25 Passive smoking exposure: Yes Quit status: not considering quitting Second hand smoke exposure: Yes Alcohol intake: never Substance use type: does not use Xochitl/alevism: Zoroastrian Special xochitl needs: No Agree to transfusion: Yes Adopted: No Caregiver/support person: No Foster care: No Household members: none Housing: house Lives independently: Yes Highest education level completed: high school graduate Financial difficulty paying for basics: not applicable service: No FCI: No Current occupational status: employed Current occupational exposures/hazards: Yes Pets and animals: Yes History of recent travel: No Sexually active: Yes Do you think of yourself as: straight/heterosexual Current gender identity: male Seatbelt use: always Helmet use: No Drives intoxicated or rides with intoxicated restaurant delivery driver: No Water heater temperature set < 120 degrees: Yes Working smoke detector in home: Yes Fire extinguisher in home: Yes Carbon monoxide detector in home: Yes Firearms in home: No Allergies Allergies Allergy/AdvReac Type Severity Reaction Status Date / Time No Known Allergies Allergy Verified 01/11/24 07:59 Current Medications Home Medications blood-glucose meter (AgrividaOn Micro Glucose Monitor) #90 ea 06/03/17 [History Confirmed 01/11/24 Last Taken Unknown] insulin syringe-needle U-100 1 mL 27 gauge x 1/2" (Easy Touch Insulin Syringe) ##100 03/15/18 [History Confirmed 01/11/24 Last Taken Unknown] blood sugar diagnostic (Blood Glucose Test strips) #100 strips 11/07/18 [History Confirmed 01/11/24 Last Taken Unknown] insulin lispro 100 unit/mL subcutaneous solution (Humalog U-100 Insulin) 1 sliding scale dose subcut USEASDIRECTD 07/10/19 [History Confirmed 01/11/24 Last Taken Unknown] gabapentin 300 mg capsule 300 mg PO BID 01/09/20 [History Confirmed 01/11/24 Last Taken Unknown] insulin glargine 100 unit/mL subcutaneous solution (Lantus U-100 Insulin) 30 unit subcut BEDTIME 02/05/20 [History Confirmed 01/11/24 Last Taken Unknown] omeprazole magnesium 20 mg tablet,delayed release (Prilosec OTC) 20 mg PO BID #20 tabs 07/06/21 [Rx Confirmed 01/11/24 Last Taken Unknown] ergocalciferol (vitamin D2) 1,250 mcg (50,000 unit) capsule 50,000 unit PO WEEKLY 12/07/22 [History Confirmed 01/11/24 Last Taken Unknown] levothyroxine 25 mcg tablet 50 mcg PO DAILY 12/07/22 [History Confirmed 01/11/24 Last Taken Unknown] famotidine 20 mg tablet 20 mg PO BID 01/11/24 [History Confirmed 01/11/24 Last Taken Unknown] Home INSULIN REGULAR IN 0.9 % NACL (Myxredlin 100 Unit/100 Ml Bag) 100 unit in 100 mls @ 5.915 mls/hr IV TITRATION SAVANAH; Protocol Last Admin: 01/11/24 09:36 Dose: 0.1 unit/kg/hr, 5.9 mls/hr Potassium Chloride/Sodium Chloride (Sodium Chloride 0.45%-Kcl 20 Meq) 1,000 mls @ 250 mls/hr IV .Q4H SAVANAH INSULIN REGULAR IN 0.9 % NACL (Myxredlin 100 Unit/100 Ml Bag) 100 unit in 100 mls @ 5.915 mls/hr IV TITRATION SAVANAH; Protocol Potassium Chloride/Dextrose/Sod Cl (D5%-1/2ns-Kcl 20 Meq/L Iv Ronit) 1,000 mls @ 250 mls/hr IV .Q4H SAVANAH Discontinued Medications Sodium Chloride (Sodium Chloride) 1,000 mls @ 1,000 mls/hr IV BOLUS ONE Stop: 01/11/24 08:53 Last Infusion: 01/11/24 09:21 Dose: Infused Sodium Chloride (Sodium Chloride) 1,000 mls @ 250 mls/hr IV .Q4H SAVANAH Last Admin: 01/11/24 09:27 Dose: 250 mls/hr Insulin Human Regular (Insulin Regular, Human 100 Unit/Ml (10ml) Vial) 6 unit 0.1 unit/kg (6 unit) IVP ONCE STA Stop: 01/11/24 08:08 Last Admin: 01/11/24 08:22 Dose: 6 unit Ondansetron HCl (Ondansetron Hcl/Pf 4 Mg/2 Ml Sdv) 4 mg IVP ONCE STA Stop: 01/11/24 07:55 Last Admin: 01/11/24 08:21 Dose: 4 mg Sodium Bicarbonate (Sodium Bicarbonate 50 Meq/50 Ml Disp.Syrin) 50 meq IVP ONCE STA Stop: 01/11/24 09:20 Last Admin: 01/11/24 09:28 Dose: 50 meq Opioid Naive vs. Tolerant Does Patient Take Opioids?: No Is Patient Opioid Naive?: Yes What is Opioid Naive?: *Opioid Naive implies the patient is not already taking opioids or not chronically receiving opioids on a daily basis. *PRN dosing is not "usually" associated with tolerance. *Patients are at higher risk of over-sedation and aspiration. Is Patient Opioid Tolerant?: No What is Opioid Tolerant?: *Opioid Tolerance implies less than the expected response to an opioid. *Acquired tolerance is defined by the patient taking 60mg of oral morphine daily (or equianalgesic dose of another opioid) for 1 week or more. *Often associated with chronic pain. *May take more than usual dose to achieve desired pain control. Review of Systems Constitutional: Reports Fatigue Head: Reports Normocephalic Eyes: Reports No symptoms Ears: Reports No symptoms Nose: Reports No symptoms Mouth: Reports No symptoms Throat: Reports No symptoms Cardiovascular: Reports No symptoms Respiratory: Reports No symptoms Gastrointestinal: Reports Nausea and Vomiting Genitourinary: Reports No Symptoms Musculoskeletal: Reports No symptoms Endocrine: Reports No symptoms Hematology: Reports No symptoms Immunology: Reports No symptoms Neurological: Reports Dizziness Psychiatric: Reports No symptoms Physical examination Most Recent Vital Signs: Most Recent Vital Signs Temperature 98.8 F 01/11/24 10:59 Temperature Source Oral 01/11/24 10:59 Temperature Source Temporal Artery Scan 01/11/24 07:52 Pulse Rate 109 H 01/11/24 10:59 Respiratory Rate 16 01/11/24 10:59 Blood Pressure 116/88 01/11/24 07:52 Blood Pressure Left Arm 121/74 01/11/24 10:59 Blood Pressure Position Supine 01/11/24 10:59 O2 Sat by Pulse Oximetry 99 01/11/24 10:59 Oxygen Delivery Method Room Air 01/11/24 10:59 Height 6 ft 01/11/24 10:59 Weight 134 lb 01/11/24 10:59 Telemetry Heart Rate 51 L 12/14/16 13:08 Appearance: Positive No Apparent Distress, Alert and Oriented x3, Ill-Appearing, Thin and Cachectic Skin: Positive Warm HEENT: Positive Normocephalic and PERRLA Neck: Positive Supple and Midline Trachea Chest/Lungs: Positive Symmetrical With Equal Breath Sounds, Clear to Auscultation Bilaterally and Good Air Movement all 4 Lung Noel Heart: Positive Pulses Normal and Tachycardia GI/: Positive Soft, Nontender, Bowel Sounds Normal and No Distention Musculoskeletal: Positive Not Examined Extremities: Positive Intact Peripheral Pulses, Stable Joints Without Laxity and Good ROM in All Joints Neurological: Positive Sensation Intact, Motor intact, Alert, Oriented and Muscle Strength 5/5 in Upper and Lower Extremities Bilaterally Psychiatric: Positive Oriented x4, Appropriate Mood, Appropriate Affect, Intact Memory, Good Short-Term Recall, Good Long-Term Recall, Normal Judgement and Normal Insight Labs This Visit Labs This Visit: Labs This Visit 01/11/24 01/11/24 01/11/24 08:05 09:10 09:40 WBC 11.60 H RBC 5.38 Hgb 15.9 Hct 46.8 MCV 87.0 MCH 29.6 MCHC 34.0 RDW Coeff of Nory 11.8 Plt Count 295 Immature Gran % (Auto) 0.9 Neut % (Auto) 78.1 H Lymph % (Auto) 15.3 Clark % (Auto) 4.9 Eos % (Auto) 0.2 Baso % (Auto) 0.6 Neut # (Auto) 9.1 H Lymph # (Auto) 1.8 Clark # (Auto) 0.6 Eos # (Auto) 0.0 Baso # (Auto) 0.1 Immature Gran # (Auto) 0.1 VBG pH 7.13 L VBG pCO2 26 L VBG pO2 119 H VBG HCO3 8.6 L VBG O2 Saturation 97.2 H Sodium 134.5 Potassium 5.02 Chloride 99.4 Carbon Dioxide 6.2 L* Anion Gap 33.92 BUN 14.5 Creatinine 1.02 Estimated GFR (MDRD) 82.00 BUN/Creatinine Ratio 14.21 Glucose 388.2 H Hemoglobin A1c 11.05 H Lactic Acid 1.65 Calcium 9.79 Magnesium 1.94 Total Bilirubin 0.81 AST 29.4 ALT 24.2 Alkaline Phosphatase 91.3 Total Protein 8.92 H Albumin 5.69 H Globulin 3.23 Albumin/Globulin Ratio 1.76 Lipase 33.0 Urine Color Light Urine Clarity Clear Urine pH 5.5 Ur Specific Walsh >=1.030 Urine Protein 1+ H Urine Glucose (UA) 2+ H Urine Ketones 4+ Urine Blood Negative Urine Nitrite Negative Urine Bilirubin Negative Urine Urobilinogen 0.2 Ur Leukocyte Esterase Negative Urine Microscopic RBC 0-2 Ur Squamous Epith Cells 0-2 Triple Phos Crystals Trace Urine Bacteria Trace Hyaline Casts 2-5 Urine Mucus Trace Ur Oval Fat Bodies Few Urine Opiates Screen Negative Ur Oxycodone Screen Negative Urine Methadone Screen Negative Ur Barbiturates Screen Negative U Tricyclic Antidepress Negative Ur Phencyclidine Scrn Negative Ur Amphetamine Screen Negative U Methamphetamines Scrn Negative U Benzodiazepines Scrn Negative Urine Cocaine Screen Negative U Cannabinoids Screen Negative Acetone, Qual Small SARS CoV-2 RNA Rapid DILAN Negative Review Statement Review Statement: I have independently reviewed and interpreted the labs/EKGs/imaging that were ordered by the ER provider. I have reviewed all outside records that are available currently in our EMR including imaging/notes/labs from previous visits. Plan Plan: 1. Severe DKA - ketonuria, pH 7, bicarb 8, anion gap 33.9; insulin gtt per protocol, IV fluids - will adjust as blood glucose decreases, A1C found to be 11, hold home insulin regimen at this time, NPO, ice chips only 2. Uncontrolled Diabetes Mellitus, Type 1 - follows with Dr. Carty, Endocrinology - has appointment this month; hold home insulin regimen while in DKA, will adjust if needed once able to resume, ADA diet when DKA resolves 3. Leukocytosis - mild, likely reactive due to above, no s/sx of infection, monitor 4. GERD - chronic, continue home medications 5. Hypothyroidism - chronic, continue home medications DVT Prophylaxis: Ambulation Time Spent: Greater than 80 minutes spent with patient, 50% of the time spent with this patient was devoted to counseling and coordination of care. Advanced Care Plannin minutes spent discussing advance care planning. Disposition: Admit to: Med/Surg Inpatient Full Code Discussed Plan of Care with Dr. Alanna Garza. Medications Medication Orders: Medications Ordered Category Date Time Status Insulin Regular in 0.9 % NaCl [Myxredlin 100 Unit/100 Meds 01/11/24 09:30 Active ml Bag] 100 unit in 100 ml IV TITRATION Insulin Regular in 0.9 % NaCl [Myxredlin 100 Unit/100 Meds 01/11/24 11:00 Active ml Bag] 100 unit in 100 ml IV TITRATION Potassium Chloride-0.45% NaCl [Sodium Chloride 0.45%- Meds 01/11/24 11:00 Active KCl 20 Meq] 1,000 ml IV 250 mls/hr Sodium Chloride 0.45 % [Sodium Chloride] 1,000 ml Meds 01/11/24 09:30 Active IV 250 mls/hr
[2024-01-11] MEDS: D5%-1/2NS-KCL 20 MEQ/L IV SOL 1,000 ML IV SCH (12:04)
[2024-01-11] MEDS: SODIUM CHLORIDE 0.45%-KCL 20 MEQ 1,000 ML IV SCH (12:06)
[2024-01-11 12:58] LABS: BLOOD UREA NITROGEN 13.6 mg/dL (9-20); CALCIUM 8.65 mg/dL (8.4-10.2); CARBON DIOXIDE 11.8 mmol/L (22-30.0); CHLORIDE 104.7 mmol/L (98-107); CREATININE 0.78 mg/dL (0.60-1.10); GLUCOSE 198.2 mg/dL (74-106); POTASSIUM 4.18 mmol/L (3.5-5.1); SODIUM 136.9 mmol/L (134.5-145)
[2024-01-11 13:25] LABS: VBG HCO3 16.2 (22-26); VBG OXYGEN SATURATION 66.8 (60-80); VBG PH 7.3 (7.30-7.40)
[2024-01-11 16:52] LABS: BLOOD UREA NITROGEN 11.6 mg/dL (9-20); CALCIUM 8.56 mg/dL (8.4-10.2); CARBON DIOXIDE 19.3 mmol/L (22-30.0); CHLORIDE 105.6 mmol/L (98-107); CREATININE 0.65 mg/dL (0.60-1.10); GLUCOSE 160.7 mg/dL (74-106); POTASSIUM 4.08 mmol/L (3.5-5.1); SODIUM 134.8 mmol/L (134.5-145)
[2024-01-11] MEDS: DEXTROSE 50%-WATER ABBOJECT ONE (18:41)
[2024-01-11] MEDS: DEXTROSE 50%-WATER ABBOJECT IVP STA ×2 (18:43→18:56)
[2024-01-11 20:35] LABS: CALCIUM 8.4 mg/dL (8.4-10.2); CREATININE 0.7 mg/dL (0.60-1.10); POTASSIUM 4.3 mmol/L (3.5-5.1)
[2024-01-11] MEDS: D5%-NS-KCL 20 MEQ/L IV SOL 1,000 ML IV SCH (20:57)
[2024-01-11] MEDS: NEURONTIN PO SCH (21:29)
[2024-01-12 00:36] LABS: BLOOD UREA NITROGEN 9.8 mg/dL (9-20); CALCIUM 8.49 mg/dL (8.4-10.2); CARBON DIOXIDE 21.4 mmol/L (22-30.0); CHLORIDE 106.9 mmol/L (98-107); CREATININE 0.61 mg/dL (0.60-1.10); GLUCOSE 183.9 mg/dL (74-106); POTASSIUM 3.63 mmol/L (3.5-5.1); SODIUM 134.7 mmol/L (134.5-145)
[2024-01-12] MEDS: LACTATED RINGERS 1,000 ML IV SCH (01:59)
[2024-01-12] MEDS: LANTUS SUBCUT ONE ×2 (02:13→14:05)
[2024-01-12 04:12] LABS: BASOPHILS % (AUTO) 0.2 % (0.0-3.0); EOSINOPHILS # (AUTO) 0.1 K/ul (0.0-0.7); EOSINOPHILS % (AUTO) 1.2 % (0.0-7.0); HEMOGLOBIN 13.1 g/dl (14.0-18.0); IMMATURE GRANULOCYTE % (AUTO) 0.2 % (0.0-5.0); LYMPHOCYTES # (AUTO) 2.6 K/uL (0.60-3.4); LYMPHOCYTES % (AUTO) 21.6 (10.0-50.0); MEAN CORPUSCULAR HEMOGLOBIN 29.4 pg (27.0-31.0); MEAN CORPUSCULAR HGB CONC 34.3 (31.8-35.4); MEAN CORPUSCULAR VOLUME 85.7 fl (80.0-94.0); MONOCYTES % (AUTO) 8.6 (0-10); NEUTROPHILS # (AUTO) 8.2 K/ul (2.0-6.9); NEUTROPHILS % (AUTO) 68.2 % (42.2-75.2); PLATELET COUNT 231 10^3/uL (140-440); RDW COEFFICIENT OF VARIATION 11.9 % (11.6-14.8); RED BLOOD COUNT 4.46 10^6/ul (4.70-6.10); WHITE BLOOD COUNT 12.01 K/ul (4.2-10.2)
[2024-01-12 04:15] LABS: HEMATOCRIT 38.2 % (42.0-52.0)
[2024-01-12 04:23] LABS: ALANINE AMINOTRANSFERASE 17.1 U/L (0-50); ALBUMIN 3.59 g/dL (3.5-5.0); ALKALINE PHOSPHATASE 56.5 U/L (38-126); ASPARTATE AMINO TRANSFERASE 28.3 U/L (17-59); BILIRUBIN,TOTAL 0.72 mg/dL (0.2-1.3); BLOOD UREA NITROGEN 9.1 mg/dL (9-20); CALCIUM 8.74 mg/dL (8.4-10.2); CARBON DIOXIDE 18.2 mmol/L (22-30.0); CHLORIDE 107.8 mmol/L (98-107); CREATININE 0.7 mg/dL (0.60-1.10); GLUCOSE 166.2 mg/dL (74-106); POTASSIUM 4.36 mmol/L (3.5-5.1); SODIUM 135.5 mmol/L (134.5-145); TOTAL PROTEIN 5.9 g/dL (6.3-8.2)
[2024-01-12] MEDS: SYNTHROID PO SCH (05:29)
[2024-01-12] MEDS: PEPCID PO SCH (08:20)
[2024-01-12 08:22] LABS: BLOOD UREA NITROGEN 10.7 mg/dL (9-20); CALCIUM 8.78 mg/dL (8.4-10.2); CARBON DIOXIDE 21.5 mmol/L (22-30.0); CHLORIDE 105.1 mmol/L (98-107); CREATININE 0.77 mg/dL (0.60-1.10); GLUCOSE 170.1 mg/dL (74-106); POTASSIUM 4.55 mmol/L (3.5-5.1); SODIUM 135.5 mmol/L (134.5-145)
[2024-01-12] MEDS: MYXREDLIN 100 UNIT/100 ML BAG 100 UNIT/100 ML PLAST..BAG IV SCH (08:52)
[2024-01-12 12:42] LABS: BLOOD UREA NITROGEN 9.2 mg/dL (9-20); CALCIUM 8.47 mg/dL (8.4-10.2); CARBON DIOXIDE 23.8 mmol/L (22-30.0); CHLORIDE 105.5 mmol/L (98-107); CREATININE 0.65 mg/dL (0.60-1.10); GLUCOSE 148.6 mg/dL (74-106); POTASSIUM 3.9 mmol/L (3.5-5.1); SODIUM 134.2 mmol/L (134.5-145)
[2024-01-12] MEDS ORDERED: LANTUS SUBCUT ONE (12:50)
--- NOTE | 2024-01-12 14:41 | DCSUM ---
Admission Date Admission Date: 01/11/24 Discharge Date Discharge Date: 01/12/24 Admission Diagnosis Admission Diagnosis: 1. Severe DKA 2. Uncontrolled Diabetes Mellitus, Type 1 3. Leukocytosis 4. GERD 5. Hypothyroidism Discharge Diagnosis Discharge Diagnosis: 1. Severe DKA - Resolved 2. Uncontrolled Diabetes Mellitus, Type 1 - Chronic, has endocrinology appt this month 3. Leukocytosis - Mild, reactive, no s/sx of infection 4. GERD - Chronic, stable 5. Hypothyroidism - Chronic, stable Hospital Provider Hospital Provider: ART WASHINGTON, [facility] [place], [place] Primary Care Physician Primary Care Physician: VIJI DELGADO MD Summary of History and Physical Summary of History and Physical: 38 yo male presented to the ER with complaints of dizziness, nausea, and vomiting. Has pmh of DM1 diagnosed in 2017. Reported he has not been taking his insulin as prescribed. Denies any fever, chills, sob, diarrhea, bloody vomitus. States blood glucose has been running 300-400 at home. A1C was found to be 11. Glucose in ER was 388, Anion gap 33.8, Bicarb 8, pH 7.13. Admitted to med/surg inpatient for treatment of severe DKA. Hospital Course Subjective: Patient was treated for severe DKA with insulin gtt and fluids. Slowly corrected until 1900 last night. Patient was provided a meal prior to correction of DKA. No improvement noted to serial labs after that. Continued gtt and fluids. Stopped after repeat labs at midnight. Food provided and lantus given following. Regressed back into mild DKA. NPO status resumed in addition to gtt and fluids after recheck at 8 am. Resolved DKA at noon today. Received diet and half of lantus dose (15 units). Reports feeling much better at this time. Bicarb gradually improved from 8 to within normal limits. Also checked thyroid labs during stay and TSH was found to be low. Stopped Synthroid. No other changes to home medications unless otherwise noted. Has follow up with endocrine this month. Appearance: Pleasant, No Apparent Distress and Alert HEENT: MMM, Supple and No JVD CVS: No Murmur Abdomen: Soft, Non-Tender and No Distention Respiratory: No Dyspnea Extremities: No Edema Vital Signs: Most Recent Vital Signs Temperature 97.4 F L 01/12/24 10:00 Temperature Source Temporal Artery Scan 01/12/24 10:00 Temperature Source Temporal Artery Scan 01/11/24 07:52 Pulse Rate 73 01/12/24 10:00 Respiratory Rate 14 01/12/24 10:00 Blood Pressure 119/66 01/12/24 10:00 Blood Pressure Mean 83 01/12/24 10:00 Blood Pressure Left Arm 121/74 01/11/24 10:59 Blood Pressure Location Right Arm 01/12/24 10:00 Blood Pressure Position Supine 01/12/24 10:00 O2 Sat by Pulse Oximetry 98 01/12/24 10:00 Oxygen Delivery Method Room Air 01/12/24 10:00 Height 6 ft 01/11/24 10:59 Weight 134 lb 01/11/24 10:59 Telemetry Type Remote Telemetry 01/12/24 13:00 Telemetry Monitoring Continues 01/12/24 13:00 Telemetry Heart Rate 79 01/12/24 13:00 EKG DE Interval 0.20 01/12/24 13:00 EKG QRS Interval 0.08 01/12/24 13:00 Telemetry Strip Reading SR 01/12/24 13:00 Lab Results Last 24 Hours: 01/12/24 01/12/24 01/12/24 12:24 08:06 04:05 WBC 12.01 H RBC 4.46 L Hgb 13.1 L Hct 38.2 L D MCV 85.7 MCH 29.4 MCHC 34.3 RDW Coeff of Nory 11.9 Plt Count 231 Immature Gran % (Auto) 0.2 Neut % (Auto) 68.2 Lymph % (Auto) 21.6 Antelope % (Auto) 8.6 Eos % (Auto) 1.2 Baso % (Auto) 0.2 Neut # (Auto) 8.2 H Lymph # (Auto) 2.6 Antelope # (Auto) 1.0 Eos # (Auto) 0.1 Baso # (Auto) 0.0 Immature Gran # (Auto) 0.0 Sodium 134.2 L 135.5 135.5 Potassium 3.90 4.55 4.36 Chloride 105.5 105.1 107.8 H Carbon Dioxide 23.8 21.5 L 18.2 L Anion Gap 8.80 13.45 13.86 BUN 9.2 10.7 9.1 Creatinine 0.65 0.77 0.70 Estimated GFR (MDRD) 137.00 113.00 126.00 BUN/Creatinine Ratio 14.15 13.89 13.00 Glucose 148.6 H 170.1 H 166.2 H Calcium 8.47 8.78 8.74 Total Bilirubin 0.72 AST 28.3 ALT 17.1 Alkaline Phosphatase 56.5 D Total Protein 5.90 L Albumin 3.59 Globulin 2.31 Albumin/Globulin Ratio 1.55 TSH 0.337 L Free T4 0.79 Acetone, Qual 01/12/24 01/11/24 01/11/24 00:09 20:18 16:30 WBC RBC Hgb Hct MCV MCH MCHC RDW Coeff of Nory Plt Count Immature Gran % (Auto) Neut % (Auto) Lymph % (Auto) Antelope % (Auto) Eos % (Auto) Baso % (Auto) Neut # (Auto) Lymph # (Auto) Antelope # (Auto) Eos # (Auto) Baso # (Auto) Immature Gran # (Auto) Sodium 134.7 133.0 L 134.8 Potassium 3.63 4.30 4.08 Chloride 106.9 103.0 105.6 Carbon Dioxide 21.4 L 21.0 L 19.3 L D Anion Gap 10.03 13.30 13.98 BUN 9.8 11.0 11.6 Creatinine 0.61 0.70 0.65 Estimated GFR (MDRD) 148.00 126.00 137.00 BUN/Creatinine Ratio 16.06 15.71 17.84 Glucose 183.9 H 219.0 H D 160.7 H Calcium 8.49 8.40 8.56 Total Bilirubin AST ALT Alkaline Phosphatase Total Protein Albumin Globulin Albumin/Globulin Ratio TSH Free T4 Acetone, Qual None Discharge Instructions Discharge Planning: Discharge Planning > 40 minutes If patient is discharged with left ventricular systolic dysfunction: NA Discharged with a beta aliza? [] If no, why not? [] Discharged with an umm/arb? [] If no, why not? [] Diagnosis: Diabetic Ketoacidosis Diet: Diabetic Follow-up with PCP next week. Medication changes: Stop taking levothyroxine for your thyroid. Your levels do not indicate need for medication. Tonight - only take 15 units of Lantus due to receiving 15 units this afternoon. Resume your normal dosing tomorrow night. Discharge Medications: Medications at Discharge (Home Meds & RX) blood-glucose meter (ReliOn Micro Glucose Monitor) #90 ea 06/03/17 insulin syringe-needle U-100 1 mL 27 gauge x 1/2" (Easy Touch Insulin Syringe) ##100 03/15/18 blood sugar diagnostic (Blood Glucose Test strips) #100 strips 11/07/18 insulin lispro 100 unit/mL subcutaneous solution (Humalog U-100 Insulin) 1 sliding scale dose subcut USEASDIRECTD 07/10/19 gabapentin 300 mg capsule 300 mg PO BID 01/09/20 insulin glargine 100 unit/mL subcutaneous solution (Lantus U-100 Insulin) 30 unit subcut BEDTIME 02/05/20 omeprazole magnesium 20 mg tablet,delayed release (Prilosec OTC) 20 mg PO BID #20 tabs 07/06/21 ergocalciferol (vitamin D2) 1,250 mcg (50,000 unit) capsule 50,000 unit PO WEEKLY 12/07/22 levothyroxine 25 mcg tablet 50 mcg PO DAILY 12/07/22 famotidine 20 mg tablet 20 mg PO BID 01/11/24 Discharge Plan Discharge Discharge Orders: Discharge Patient (ONCE); Ordered 01/12/24 Ordered By: MIRIAM MALCOLM Activity Restrictions/Additional Instructions: Diagnosis: Diabetic Ketoacidosis Diet: Diabetic Follow-up with PCP next week. Medication changes: Stop taking levothyroxine for your thyroid. Your levels do not indicate need for medication. Tonight - only take 15 units of Lantus due to receiving 15 units this afternoon. Resume your normal dosing tomorrow night. Instructions: Managing Diabetes During Sick Days (GEN), Diabetic Hyperglycemia (GEN) Patient Disposition: HOME WITH FAMILY CARE Prescriptions: Continued (DME) blood-glucose meter [ReliOn Micro Glucose Monitor] 1 EACH misc 1 ea MC TID Qty: 90 (DME) insulin syringe-needle U-100 [Easy Touch Insulin Syringe] 1 EACH syringe 1 ea MC TID Qty: 100 (DME) Blood Glucose Test 1 EACH strip 1 ea MC TID Qty: 100 insulin glargine [Lantus U-100 Insulin] 1 UNIT solution 30 unit subcut BEDTIME omeprazole magnesium [Prilosec OTC] 20 mg tablet,delayed release (DR/EC) 20 mg PO BID Qty: 20 0RF famotidine 20 mg tablet 20 mg PO BID Patient Comments: TAKE 1 TABLET BY MOUTH TWICE DAILY FOR HEARTBURN ergocalciferol (vitamin D2) 1,250 mcg (50,000 unit) capsule 50,000 unit PO WEEKLY Patient Comments: TAKE 1 CAPSULE BY MOUTH ONCE A WEEK insulin lispro [Humalog U-100 Insulin] 100 unit/mL solution 1 sliding scale dose SUBCUT USEASDIRECTD gabapentin 300 mg capsule 300 mg PO BID Discontinued levothyroxine 25 mcg tablet 50 mcg PO DAILY Patient Comments: TAKE 1 TABLET BY MOUTH ONCE DAILY ON A EMPTY STOMACH BEFORE EATING Did you review [place] ORDER PACKER for ALL controlled substances?: No Discussed opioids are addictive and Narcan is available by prescription or from pharmacy.: No Condition: Fair Referrals: CECILIA NAVARRO APRN [NURSE PRACTITIONER] - 01/19/24 8:45 am
[2024-01-12 14:53] VITALS: BP 112/68; PULSE 62; RESP 15; TEMP 97.6
== END 2024-01-12 16:10 | disposition home or self-care (01) | DRG 639 ==
LOC: ED 07:45 → MEDSURG B 10:31
PROVIDERS: ADMIT Hospitalist; ATTEND Nurse Practitioner Family